=== PATIENT | female | born 1965 | race Caucasian/White ===

== ENCOUNTER → 2020-04-23 15:56 | Outpatient (BNVA) | payer OTHER, SELFPAY | PROVIDERS: PCP Otolaryngology; Referring Provider Otolaryngology; Visit Provider Physician Assistant | DX: K90.49 Malabsorption due to intolerance, not elsewhere classified (principal); Z98.84 Bariatric surgery status | CPT/HCPCS: 99212 ==

== ENCOUNTER → 2020-04-24 12:40 | Outpatient (BNVA) | payer OTHER, SELFPAY | PROVIDERS: Visit Provider Dietitian, Registered | DX: Z90.3 Acquired absence of stomach [part of] (principal) ==

== ENCOUNTER → 2020-04-24 12:40 | Outpatient (BNVA) | payer OTHER, SELFPAY | PROVIDERS: Visit Provider Dietitian, Registered | DX: Z76.89 Persons encountering health services in other specified circumstances (principal) ==

== ENCOUNTER 2020-07-11 14:42 | Outpatient (REF) | payer OTHER, SELFPAY ==
[2020-07-11 16:33] LABS: MANUAL DIFF FLAG NO
[2020-07-11 16:40] LABS: Basophils Percent Auto 0.8 % (0-2); Eosinophils Absolute Auto 0.1 X10*3/uL (0.0-0.4); Eosinophils Percent Auto 2.9 % (0-4); Hematocrit 38.1 % (37-47); Hemoglobin 12.7 g/dl (12.0-16.0); Imm Gran Abs Auto 0.01 X10*3/uL (0.00-0.03); Imm Gran Pct Auto 0.2 % (0.0-0.4); Lymphocytes Absolute Auto 2.2 X10*3/uL (1.2-4.9); Lymphocytes Percent Auto 45.4 % (20-40); Mean Corpuscular HGB Conc 33.3 g/dl (31.0-35.0); Mean Corpuscular Hemoglobin 31.3 pg (27.0-33.0); Mean Corpuscular Volume 93.8 fL (80-98); Mean Platelet Volume 10.6 fL (9.4-12.3); Monocytes Absolute Auto 0.4 X10*3/uL (0.1-1.2); Monocytes Percent Auto 8.2 % (2-11); Neutrophils Percent Auto 42.5 % (45-73); Platelet Count 277 X10*3/uL (160-400); Red Blood Count 4.06 X10*6/uL (4.20-5.50); Red Cell Distribution Width 12.3 % (11.0-16.0); White Blood Count 4.8 X10*3/uL (4.8-10.8)
[2020-07-11 17:04] LABS: Alanine Aminotransferase 15 U/L (0-31); Albumin Level 4.3 g/dL (3.5-5.0); Alkaline Phosphatase 64 U/L (39-117); Anion Gap 11 (12-20); Aspartate Amino Transferase 16 U/L (5-31); Bilirubin Total 0.4 mg/dL (0.0-1.0); Blood Urea Nitrogen 9 mg/dL (9-16); C Reactive Protein < 0.02 mg/dL (< or = 0.50); Calcium 8.7 mg/dL (8.4-10.2); Carbon Dioxide 29 mmol/L (22-29); Chloride 105 mmol/L (96-108); Estimated Glomerular Filt Rate > 60; Glucose Random 65 mg/dL (60-115); Potassium 4.5 mmol/l (3.3-5.1); Sodium 140 mmol/L (135-145); Total Protein 6.7 g/dL (6.5-8.0)
== END 2020-07-11 14:43 | disposition home or self-care (01) ==
LOC: HO.HMGCLDS 14:42
PROVIDERS: PCP Internal Medicine; Visit Provider Internal Medicine
DX: B34.9 Viral infection, unspecified (principal); Z20.822 Contact with and (suspected) exposure to COVID-19
CPT/HCPCS: 36415; 80053; 85025; 86140; U0003

== ENCOUNTER 2020-08-01 12:47 | Outpatient (REF) | payer OTHER, SELFPAY ==
--- NOTE | ~2020-08-01 | XR_ITS ---
EXAMINATION: XR CHEST CLINICAL INFORMATION: Weight loss COMPARISON: Previous chest x-rays most recent September 2018 TECHNIQUE: 2 views of the chest were obtained. FINDINGS: The cardiac and mediastinal contours are stable. The lungs are well-inflated suggestive of COPD. The lungs are clear. There is no pleural effusion or pneumothorax. There are degenerative changes of the spine. XR/XR chest 2V IMPRESSION: Well-inflated lungs suggestive of COPD. No evidence for acute disease in the chest.
[2020-08-01 13:53] LABS: MANUAL DIFF FLAG NO
[2020-08-01 14:06] LABS: Glucose Urine UA NEG (NEG); Leukocyte Esterase Urine NEG (NEG); Nitrite Urine NEG (NEG); PH 5.5 (5.0-8.0); Specific Gravity - Urine 1.015 (1.005-1.025); Urine Blood 1+ (NEG); Urine Ketones NEG (NEG); Urine Protein 1+ MG/DL (NEG-TRACE)
[2020-08-01 14:09] LABS: Appearance Urine HAZY; Color Urine YELLOW
[2020-08-01 14:13] LABS: Basophils Percent Auto 0.2 % (0-2); Eosinophils Percent Auto 0.1 % (0-4); Hematocrit 39.4 % (37-47); Hemoglobin 13.6 g/dl (12.0-16.0); Imm Gran Abs Auto 0.04 X10*3/uL (0.00-0.03); Imm Gran Pct Auto 0.3 % (0.0-0.4); Lymphocytes Absolute Auto 1.3 X10*3/uL (1.2-4.9); Lymphocytes Percent Auto 11.2 % (20-40); Mean Corpuscular HGB Conc 34.5 g/dl (31.0-35.0); Mean Corpuscular Hemoglobin 31.4 pg (27.0-33.0); Mean Platelet Volume 10.6 fL (9.4-12.3); Monocytes Absolute Auto 0.6 X10*3/uL (0.1-1.2); Monocytes Percent Auto 5.4 % (2-11); Neutrophils Absolute Auto 9.7 X10*3/uL (2.0-8.3); Neutrophils Percent Auto 82.8 % (45-73); Platelet Count 346 X10*3/uL (160-400); Red Blood Count 4.33 X10*6/uL (4.20-5.50); Red Cell Distribution Width 12.9 % (11.0-16.0); White Blood Count 11.7 X10*3/uL (4.8-10.8)
[2020-08-01 14:27] LABS: Alanine Aminotransferase 22 U/L (0-31); Albumin Level 4.8 g/dL (3.5-5.0); Alkaline Phosphatase 70 U/L (39-117); Anion Gap 14 (12-20); Aspartate Amino Transferase 18 U/L (5-31); Bilirubin Total 0.5 mg/dL (0.0-1.0); Blood Urea Nitrogen 5 mg/dL (9-16); Calcium 9.9 mg/dL (8.4-10.2); Carbon Dioxide 23 mmol/L (22-29); Chloride 105 mmol/L (96-108); Estimated Glomerular Filt Rate > 60; Glucose Random 114 mg/dL (60-115); Potassium 3.3 mmol/L (3.3-5.1); Sodium 139 mmol/L (135-145); Total Protein 7.6 g/dL (6.5-8.0)
[2020-08-01 14:30] LABS: Bacteria Urine 1+ /LPF; Mucus Urine 2+ /LPF; Squamous Epithelial Cell Urine 2+ /LPF
[2020-08-01 14:58] LABS: Folate > 20.0 ng/mL (> or = 4.0); Vitamin B12 1106 pg/mL (200-900)
[2020-08-01 15:23] LABS: Erythrocyte Sedimentation Rate 11 MM/HR (0-20)
== END 2020-08-01 12:48 | disposition home or self-care (01) ==
LOC: HO.HMGCLDS 12:47
PROVIDERS: PCP Internal Medicine; Visit Provider Internal Medicine
DX: R63.4 Abnormal weight loss (principal)
CPT/HCPCS: 36415; 71046; 80053; 81001; 81003; 82607; 82746; 85025; 85652; 86140

== ENCOUNTER 2020-08-22 14:53 | Outpatient (REF) | payer OTHER, SELFPAY ==
[2020-08-22 17:12] LABS: Vitamin D 25-OH Total 70.3 ng/mL (>30)
[2020-08-24 17:30] LABS: Folate > 20.0 ng/mL (> or = 4.0); Vitamin B12 877 pg/mL (200-900)
[2020-08-27 06:17] LABS: Vitamin B1 35 nmol/L (8-30)
[2020-08-27 13:47] LABS: Vitamin A 73 mcg/dL (38-98)
== END 2020-08-22 14:54 | disposition home or self-care (01) ==
LOC: HO.HMGCLDS 14:53
PROVIDERS: PCP Internal Medicine; Visit Provider Physician Assistant
DX: Z98.84 Bariatric surgery status (principal); Z90.3 Acquired absence of stomach [part of]
CPT/HCPCS: 36415; 82306; 82607; 82746; 84425; 84590

== ENCOUNTER → 2020-09-04 08:12 | Outpatient (BNVA) | payer OTHER, SELFPAY | PROVIDERS: PCP Internal Medicine; Visit Provider Surgery ==

== ENCOUNTER → 2020-09-06 15:56 | Outpatient (BNVA) | payer OTHER, SELFPAY | PROVIDERS: PCP Internal Medicine; Visit Provider Surgery | DX: K90.49 Malabsorption due to intolerance, not elsewhere classified (principal); Z90.3 Acquired absence of stomach [part of] | CPT/HCPCS: 99212 ==

== ENCOUNTER → 2020-11-05 08:21 | Outpatient (BNVA) | payer OTHER, SELFPAY | PROVIDERS: PCP Internal Medicine; Visit Provider Dietitian, Registered | DX: Z68.20 Body mass index [BMI] 20.0-20.9, adult (principal); Z98.84 Bariatric surgery status | CPT/HCPCS: 97803 ==

== ENCOUNTER 2022-04-15 13:12 | Outpatient (REF) | payer OTHER, SELFPAY ==
[2022-04-15 14:15] LABS: MANUAL DIFF FLAG NO
[2022-04-15 14:22] LABS: Basophils Absolute Auto 0.1 X10*3/uL (0.0-0.2); Basophils Percent Auto 1.1 % (0-2); Eosinophils Absolute Auto 0.2 X10*3/uL (0.0-0.4); Eosinophils Percent Auto 3.2 % (0-4); Hematocrit 40.8 % (37.0-47.0); Hemoglobin 13.3 g/dl (12.0-16.0); Imm Gran Abs Auto 0.01 X10*3/uL (0.00-0.03); Imm Gran Pct Auto 0.2 % (0.0-0.4); Lymphocytes Absolute Auto 1.8 X10*3/uL (1.2-4.9); Lymphocytes Percent Auto 33.1 % (20-40); Mean Corpuscular HGB Conc 32.6 g/dl (31.0-35.0); Mean Corpuscular Hemoglobin 29.2 pg (27.0-33.0); Mean Corpuscular Volume 89.7 fL (80.0-98.0); Mean Platelet Volume 10.7 fL (9.4-12.3); Monocytes Absolute Auto 0.5 X10*3/uL (0.1-1.2); Monocytes Percent Auto 8.5 % (2-11); Neutrophils Absolute Auto 2.9 x10*3/uL (2.0-8.3); Neutrophils Percent Auto 53.9 % (45-73); Platelet Count 303 X10*3/uL (160-400); Red Blood Count 4.55 X10*6/uL (4.20-5.50); Red Cell Distribution Width 13.4 % (11.0-16.0); White Blood Count 5.3 X10*3/uL (4.8-10.8)
[2022-04-15 14:31] LABS: Estimated Average Glucose 105 mg/dL; Hemoglobin A1c % 5.3 %
[2022-04-15 15:01] LABS: Alanine Aminotransferase 22 U/L (0-31); Albumin Level 4.5 g/dL (3.5-5.0); Alkaline Phosphatase 73 U/L (39-117); Anion Gap 14 (12-20); Aspartate Amino Transferase 19 U/L (5-31); Bilirubin Total 0.4 mg/dL (0.0-1.0); Blood Urea Nitrogen 10 mg/dL (9-16); Calcium 9.7 mg/dL (8.4-10.2); Carbon Dioxide 26 mmol/L (22-29); Chloride 105 mmol/L (96-108); Cholesterol 178 mg/dL; Estimated Glomerular Filt Rate > 60; Glucose Fasting 87 mg/dL (60-99); HDL Cholesterol 52 mg/dL; LDL Cholesterol Calculated 106 mg/dl; Potassium 4.2 mmol/L (3.3-5.1); Sodium 141 mmol/L (135-145); Total Protein 7.3 g/dL (6.5-8.0); Triglycerides 103 mg/dL
[2022-04-15 15:04] LABS: Thyroid Stimulating Hormone 0.48 uIU/mL (0.32-4.0); Vitamin D 25-OH Total 38.2 ng/mL (>30)
[2022-04-15 16:33] LABS: Appearance Urine Cloudy; Color Urine Yellow; Glucose Urine UA Negative (Negative); Leukocyte Esterase Urine Trace (Negative); Nitrite Urine Negative (Negative); UMIC TRIGGER UA YES; Urine Blood Negative (Negative); Urine Ketones Negative (Negative); Urine Protein Negative (Neg-Trace)
[2022-04-15 16:39] LABS: Bacteria Urine None Seen (None Seen); Hyaline Casts Urine 0-2 /LPF (0-2); RBC Urine 0-2 /HPF (0-2); WBC Urine 0-5 /HPF (0-5)
== END 2022-04-15 13:13 | disposition home or self-care (01) ==
LOC: HO.HMGCLDS 13:12
PROVIDERS: PCP Internal Medicine; Visit Provider Internal Medicine
DX: Z00.00 Encounter for general adult medical examination without abnormal findings (principal); G93.2 Benign intracranial hypertension; E78.00 Pure hypercholesterolemia, unspecified
CPT/HCPCS: 36415; 80053; 80061; 81001; 82306; 83036; 84443; 85025

== ENCOUNTER 2022-05-14 14:44 | Outpatient (REF) | payer OTHER, SELFPAY ==
--- NOTE | ~2022-05-14 | MM_ITS ---
EXAMINATION: MM SCREENING DIGITAL BREAST TOMOSYNTHESIS, BILATERAL CLINICAL INFORMATION: Screening. Asymptomatic. The lifetime risk of breast cancer based on the Tyrer-Cuzick Model is 11%. COMPARISON: Mammography: 04/26/2018, 06/10/2017, 02/21/2016, 07/18/2015; bilateral breast ultrasound 06/10/2017, right breast ultrasound 04/26/2018 TECHNIQUE: Digital breast tomosynthesis is performed in both the craniocaudal and mediolateral oblique views along with computer-aided detection (CAD). Synthesized 2D images are generated from the tomosynthesis. FINDINGS: There are scattered areas of fibroglandular density (ACR BI-RADS breast composition Category b). There are no significant masses, abnormal calcifications, or other abnormalities. No developing density or architectural abnormality. The dominant cyst anterior central right breast has substantially decreased since 2018. Prior measurement approximately 2.4 cm and current measurement approximately 0.6 cm. The smaller cyst anterior upper left breast has resolved since 2018. The axilla and skin contours are unremarkable. No significant changes. MM/MM tomosynthesis screening BI IMPRESSION: -No mammographic evidence of malignancy. -Substantial decrease in bilateral cysts since prior imaging 2018. ASSESSMENT: BI-RADS 2: Benign RECOMMENDATION: Routine annual mammography screening. This patient's information was entered into a reminder system with a target due date for their next mammogram.
== END 2022-05-14 14:45 | disposition home or self-care (01) ==
LOC: HO.MAMMO 14:44
PROVIDERS: PCP Internal Medicine; Visit Provider Internal Medicine
DX: Z12.31 Encounter for screening mammogram for malignant neoplasm of breast (principal)
CPT/HCPCS: 77063; 77067

== ENCOUNTER 2023-05-20 15:02 | Outpatient (REF) | payer OTHER, SELFPAY | END 2023-05-20 15:03 | disposition home or self-care (01) | LOC: HO.MAMMO 15:02 | PROVIDERS: PCP Internal Medicine; Visit Provider Internal Medicine | DX: Z12.31 Encounter for screening mammogram for malignant neoplasm of breast (principal) | CPT/HCPCS: 77063; 77067 ==

== ENCOUNTER → 2023-05-20 15:15 | Outpatient (BNV) | payer OTHER, SELFPAY | PROVIDERS: PCP Internal Medicine; Visit Provider Radiology Diagnostic Radiology | DX: Z12.31 Encounter for screening mammogram for malignant neoplasm of breast (principal) | CPT/HCPCS: 77063; 77067 ==

== ENCOUNTER 2023-09-03 14:05 | Observation (INO) | payer OTHER, SELFPAY ==
[2023-09-03] VITALS (7 sets, daily range): BP systolic 118–159; BP diastolic 58–84; PULSE 62–78; RESP 16–18; TEMP 36.5–36.6; O2SAT 97–100; BMI 34.9
--- NOTE | ~2023-09-03 | CT_ITS ---
EXAMINATION: CT HEAD WITHOUT CONTRAST CLINICAL INFORMATION: Syncope COMPARISON: None available. TECHNIQUE: Contiguous axial imaging was performed from the skull base to vertex without intravenous administration of contrast. This CT examination was performed using dose optimization techniques as appropriate, variously including the following: *Automated exposure control *Adjustment of mA and/or kV according to patient size (this includes techniques or standardized protocols for targeted exams where dose is matched to indication/reason for exam; i.e. extremities or head) *Use of iterative reconstruction technique DLP: 574 mGy-cm FINDINGS: There is no acute intra-axial, extra-axial bleed, masses or midline shift. There is a no acute infarction in evolution. There is no edema. The collier to white matter differentiation is maintained normal. Bone windows reveal no calvarial abnormality. There is no scalp soft tissue abnormality. CT/CT head/brain wo IV con IMPRESSION: No acute intracranial process seen.
--- NOTE | ~2023-09-03 | XR_ITS ---
EXAMINATION: XR CHEST CLINICAL INFORMATION: Syncope COMPARISON: None available. TECHNIQUE: Frontal view of the chest was obtained. FINDINGS: No significant abnormality is noted involving the heart, lungs, mediastinum, bony thorax or soft tissues. XR/XR chest 1V IMPRESSION: Unremarkable chest examination.
--- NOTE | 2023-09-03 14:13 | ECG_ITS ---
Test Reason : SYNCOPE Blood Pressure : / mmHG Vent. Rate : 063 BPM Atrial Rate : 063 BPM P-R Int : 202 ms QRS Dur : 084 ms QT Int : 408 ms P-R-T Axes : 057 019 023 degrees QTc Int : 417 ms Normal sinus rhythm Normal ECG When compared with ECG of 21-DEC-2018 15:21, No significant change was found Referred By: Marcus Salvador Electronically Signed By:SHORTY CEE
--- NOTE | 2023-09-03 14:23 | ED.SYNCOPE ---
HPI - Syncope General Chief Complaint: Syncope Stated Complaint: SYNCOPAL EPISODE NUMBESS IN EXTREMITIES Time Seen by Provider: 09/03/23 14:13 Source: patient, EMS and old records reviewed Mode of arrival: EMS Limitations: no limitations History of Present Illness HPI narrative: A 58-year-old female brought in by ambulance for evaluation of syncopal episode witnessed by . Patient been having generalized body numbness constantly for the past few months that has been evaluated by neurologist Dr. Root no underlying cause of patient's generalized numbness was found. Since yesterday patient feels generalized body numbness and shooting pain to both legs with bilateral like weakness only if she stands for long time, patient last remember that she was walking in the house then the 2nd thing she remembered when her was trying to wake up by rubbing her chest. Patient declined CP, SOB, focal weakness. Related Data Home Medications Medication Instructions Recorded Confirmed Celebrate Bariatric Multivitamin PO 04/23/20 09/06/20 pravastatin 40 mg tablet 40 mg PO DAILY 04/24/20 09/06/20 trazodone 100 mg tablet 100 mg PO BEDTIME PRN 04/24/20 09/06/20 bimuuztogu-aulpoajrmjzov-mdoptqpp tab PO 09/06/20 09/06/20 50 mg-325 mg-40 mg tablet cyclobenzaprine 10 mg tablet 10 mg PO TID PRN 09/06/20 09/06/20 linaclotide 290 mcg capsule 290 mcg PO DAILY 09/06/20 09/06/20 (Linzess) tlirnick-gmsl-wfdh 8 mg-folic 400 1 tab PO DAILY 09/06/20 09/06/20 mcg-K 50 mcg-lutein 300 mcg tablet (Multivitamin Women 50 Plus) omeprazole 40 mg capsule,delayed 40 mg PO DAILY 09/06/20 09/06/20 release potassium gluconate 595 mg (99 mg) 595 mg PO DAILY 09/06/20 09/06/20 tablet spironolactone 50 mg tablet 50 mg PO DAILY 09/06/20 09/06/20 topiramate 100 mg tablet (Topamax) 50 mg PO BID 09/06/20 09/06/20 topiramate 50 mg tablet 50 mg PO BID 09/06/20 09/06/20 calcium citrate 500 mg PO BID 03/03/22 Previous Rx's Medication Instructions Recorded docusate sodium 100 mg capsule 100 mg PO BID #60 caps 10/17/20 calcium citrate 500 mg (2 x 250 mg calcium) PO BID 08/16/21 #30 tabs Allergies Allergy/AdvReac Type Severity Reaction Status Date / Time varenicline [From CHANTIX] Allergy Severe NIGHTMARES Verified 09/06/20 16:41 acetaminophen Allergy Unknown emesis Verified 09/06/20 16:41 [Tylenol-Codeine] barium sulfate Allergy Unknown nightmares Verified 09/06/20 16:41 codeine [Tylenol-Codeine] Allergy Unknown emesis Verified 09/06/20 16:41 pt states no food allergies Allergy Unknown nka Uncoded 09/06/20 16:41 From Tylenol-Codeine #2 AdvReac Intermediate NAUSEA Uncoded 09/06/20 16:41 Review of Systems Review of Systems: All other systems are reviewed and are negative Constitutional: Reports as per HPI and Reports no additional constitutional complaints Eyes: Reports as per HPI and Reports no additional eye complaints Reports system reviewed and no additional complaints, except as documented Cardiovascular: Reports as per HPI and Reports no additional cardiovascular complaints Respiratory: Reports as per HPI and Reports no additional respiratory complaints Gastrointestinal: Reports as per HPI and Reports no additional gastrointestinal complaints Genitourinary: Reports no additional female genitourinary complaints Musculoskeletal: Reports no additional musculoskeletal complaints Skin/Breast: Reports system reviewed and no additional complaints, except as docu Psychiatric: Reports no additional psychiatric complaints Endocrine: Reports no additional endocrine complaints Hematologic/Lymphatic: Reports no additional hematologic/lymphatic complaints Allergic/Immunologic: Reports no additional allergic/immunologic complaints Reports system reviewed and no additional complaints, except as documented and Reports Abnormal speech present [facility] Past Medical History Medical History Obesity (BMI 30-39.9) Hypercholesteremia GERD (gastroesophageal reflux disease) Hiatal hernia Pseudotumor cerebri Malabsorption due to intolerance, not elsewhere classified Hx of ectopic Surgical History History of repair of hiatal hernia Hx of section History of dilatation and curettage History of partial hysterectomy History of sleeve gastrectomy Hx of cholecystectomy Family History Family History Father Bone cancer History of hypothyroidism Diabetes mellitus Mother Diabetes mellitus Hyperuricemia, pulmonary hypertension, renal failure, and alkalosis syndrome Brother No problems noted. Daughter No problems noted. Daughter No problems noted. Son No problems noted. Son No problems noted. Social History Social History Alcohol intake: never Advance Directives: No Physical Exam Vital Signs: Vital Signs: Last Vital Signs Pulse 71 09/03/23 14:21 Resp 16 09/03/23 14:21 BP 142/65 H 09/03/23 14:21 Pulse Ox 99 09/03/23 14:21 O2 Del Method Room Air 09/03/23 14:21 BMI result Body Mass Index 34.9 Vital signs have been reviewed and appear to be correct. Blood pressure elevated. Heart rate normal. Respiratory rate normal. Temperature normal. Oxygen saturation normal. Appearance: Alert. Oriented X3. No acute distress. Head: Normal external exam. Normocephalic. Atraumatic. No Pepe signs noted. No raccoon eyes noted Eyes: PERRLA. EOMI. Conjunctiva and sclera normal. Eyelids normal. ENT: TM's Normal. Pharynx normal. Uvula midline. Moist mucous membranes. No trismus noted. No drooling noted. No muffled voice noted. Neck: Normal inspection. Neck supple. FROM. No adenopathy. Thyroid Normal. No meningeal signs. No neck mass noted. CVS: Normal heart rate and rhythm. Heart sound normal. No murmurs noted. Pulses normal throughout. Respiratory: No respiratory distress. Painless inspiration. Breath sounds normal. No wheezes/rales/rhonchi noted. Chest nontender. No accessory muscle usage noted or decreased air movement noted. Abdomen: Soft and nontender. Bowel sounds normal in all 4 quadrants. No distention noted. No organomegaly noted. No visible injury noted. Back: No CVA tenderness. Full range of motion noted. Skin: Skin warm and dry. Normal skin color. Normal skin turgor. No rashes/lesions/lacerations noted. Extremities: No lower extremity edema. Extremities exhibit normal range of motion. Extremities nontender. Neuro: Oriented X 3. Cranial nerve exam: II-XII are grossly intact No motor deficit. No sensory deficit. Reflexes normal. NIH Stroke Scale Time: 14:29 Level of Consciousness: Alert Level of Consciousness Questions: Answers both questions correctly Level of Consciousness Commands: Performs both tasks correctly Best Gaze: Normal Visual: No visual loss Facial Palsy: Normal Motor Arm (Right): No drift Motor Arm (Left): No drift Motor Leg (Right): No drift Motor Leg (Left): No drift Limb Ataxia: Absent Sensory: Normal Best Language: No aphasia Dysarthia: Normal Extinction and Inattention: No abnormality Score: 0 Course Reevaluation(s) Reevaluation #1: Syncopal episode, with generalized body paresthesia that has been evaluated by neurologist in the past, will admit the patient for further cardiac monitoring. Time: 17:00 Medications Administered Discontinued Medications Generic Name Dose Route Start Last Admin Trade Name Freq PRN Reason Stop Dose Admin Sodium Chloride 1,000 mls @ 999 mls/hr 09/03/23 14:13 09/03/23 16:46 Ns IV 09/03/23 15:13 Infused .Q1H1M ONE Infusion Medical Decision Making Differential Diagnosis Differential Diagnoses: The differential diagnosis associated with the presentation includes (ACS, CHF, electrolyte abnormality, severe anemia, pneumonia, pneumothorax, intracranial pathology.) Admission/Observation Consideration of admission/observation: Escalation of care including admission/observation considered Consult Healthcare Provider Management of the patient was discussed with: Hospitalist (Dr. Reddy) Lab Data MDM Lab Attestation statement: I reviewed the patient's lab results. 09/03/23 14:55 09/03/23 14:55 Labs: Lab Results 09/03/23 Range/Units 14:55 WBC 6.4 (4.8-10.8) X10*3/uL RBC 4.41 (4.20-5.50) X10*6/uL Hgb 13.3 (12.0-16.0) g/dl Hct 39.7 (37.0-47.0) % MCV 90.0 (80.0-98.0) fL MCH 30.2 (27.0-33.0) pg MCHC 33.5 (31.0-35.0) g/dl RDW 13.2 (11.0-16.0) % Plt Count 311 (160-400) X10*3/uL MPV 10.0 (9.4-12.3) fL Immature Gran % (Auto) 0.2 (0.0-0.4) % Neut % (Auto) 59.0 (45-73) % Lymph % (Auto) 30.3 (20-40) % [place] % (Auto) 6.9 (2-11) % Eos % (Auto) 2.8 (0-4) % Baso % (Auto) 0.8 (0-2) % Lymph # (Auto) 1.9 (1.2-4.9) X10*3/uL [place] # (Auto) 0.4 (0.1-1.2) X10*3/uL Eos # (Auto) 0.2 (0.0-0.4) X10*3/uL Baso # (Auto) 0.1 (0.0-0.2) X10*3/uL Abs Immat Gran (auto) 0.01 (0.00-0.03) X10*3/uL Absolute Neuts (auto) 3.8 (2.0-8.3) x10*3/uL Absolute Nucleated RBC 0.000 (0.0-0.012) X10*3/uL Nucleated RBC % (auto) 0.0 (0.0-0.2) /100WBC Sodium 143 (135-145) mmol/L Potassium 3.6 (3.3-5.1) mmol/L Chloride 110 H (96-108) mmol/L Carbon Dioxide 26 (22-29) mmol/L Anion Gap 11 L (12-20) BUN 8 L (9-16) mg/dL Creatinine 0.63 (0.5-1.4) mg/dL Estim Creat Clear Calc 109.7 Estimated GFR > 60 Random Glucose 96 (60-115) mg/dL Calcium 8.9 D (8.4-10.2) mg/dL Total Bilirubin 0.2 (0.0-1.0) mg/dL Direct Bilirubin < 0.2 (0.0-0.5) mg/dL AST 14 (5-31) U/L ALT 15 (0-31) U/L Alkaline Phosphatase 77 (39-117) U/L Troponin I High Sens < 2.7 (<3.5-17.0) ng/L B-Natriuretic Peptide 24 (<100) pg/mL Total Protein 6.9 (6.5-8.0) g/dL Albumin 4.0 (3.5-5.0) g/dL Lipase 18 (8-78) U/L Influenza Type A (PCR) NEGATIVE (Negative) Influenza Type B (PCR) NEGATIVE (Negative) RSV RNA Qual (PCR) NEGATIVE (Negative) SARS-CoV-2 RNA (RT-PCR) NEGATIVE (Negative) Independent Interpretation I performed an independent interpretation of an: EKG (Normal sinus rhythm at 63 beats per minute, normal axis deviation, normal intervals, no ST-T changes, no significant change from previous EKG.), Plain X-Ray (Chest: No acute intrathoracic pathology.) and CT Scan (Head: No acute intracranial pathology.) Radiology Impression Discussion of test interpretation with radiology: I have reviewed the radiologist's reading. Discharge Plan Discharge Clinical Impression: Syncope and collapse Patient Disposition: Admitted As Inpatient Prescriptions: No Action docusate sodium 100 mg capsule 100 mg PO BID Qty: 60 2RF calcium citrate 250 mg calcium tablet 500 mg PO BID calcium citrate 250 mg calcium tablet 500 mg PO BID Qty: 30 3RF topiramate 50 mg tablet 50 mg PO BID omeprazole 40 mg capsule,delayed release(DR/EC) 40 mg PO DAILY spironolactone 50 mg tablet 50 mg PO DAILY Linzess 290 mcg capsule 290 mcg PO DAILY Multivitamin Women 50 Plus 8 mg iron-400 mcg-300 mcg tablet 1 tab PO DAILY cyclobenzaprine 10 mg tablet 10 mg PO TID PRN wwzrcvzyhy-asbwhnkvyzenl-ozqp 50-325-40 mg tablet PO potassium gluconate 595 mg (99 mg) tablet 595 mg PO DAILY Celebrate Bariatric Multivitamin PO pravastatin 40 mg tablet 40 mg PO DAILY trazodone 100 mg tablet 100 mg PO BEDTIME PRN topiramate [Topamax] 100 mg tablet 50 mg PO BID
[2023-09-03] MEDS: 0.9 % Sodium Chloride 1,000 ML 999 ML IV (14:27)
[2023-09-03 15:00] LABS: MANUAL DIFF FLAG NO
[2023-09-03 15:12] LABS: Basophils Absolute Auto 0.1 X10*3/uL (0.0-0.2); Basophils Percent Auto 0.8 % (0-2); Eosinophils Absolute Auto 0.2 X10*3/uL (0.0-0.4); Eosinophils Percent Auto 2.8 % (0-4); Hematocrit 39.7 % (37.0-47.0); Hemoglobin 13.3 g/dl (12.0-16.0); Imm Gran Abs Auto 0.01 X10*3/uL (0.00-0.03); Imm Gran Pct Auto 0.2 % (0.0-0.4); Lymphocytes Absolute Auto 1.9 X10*3/uL (1.2-4.9); Lymphocytes Percent Auto 30.3 % (20-40); Mean Corpuscular HGB Conc 33.5 g/dl (31.0-35.0); Mean Corpuscular Hemoglobin 30.2 pg (27.0-33.0); Monocytes Absolute Auto 0.4 X10*3/uL (0.1-1.2); Monocytes Percent Auto 6.9 % (2-11); Neutrophils Absolute Auto 3.8 x10*3/uL (2.0-8.3); Platelet Count 311 X10*3/uL (160-400); Red Blood Count 4.41 X10*6/uL (4.20-5.50); Red Cell Distribution Width 13.2 % (11.0-16.0); White Blood Count 6.4 X10*3/uL (4.8-10.8)
[2023-09-03 15:22] LABS: Alanine Aminotransferase 15 U/L (0-31); Alkaline Phosphatase 77 U/L (39-117); Anion Gap 11 (12-20); Aspartate Amino Transferase 14 U/L (5-31); Bilirubin Direct < 0.2 mg/dL (0.0-0.5); Bilirubin Total 0.2 mg/dL (0.0-1.0); Blood Urea Nitrogen 8 mg/dL (9-16); Calcium 8.9 mg/dL (8.4-10.2); Carbon Dioxide 26 mmol/L (22-29); Chloride 110 mmol/L (96-108); Creatinine Clr Calc Pharmacy 109.7; Estimated Glomerular Filt Rate > 60; Glucose Random 96 mg/dL (60-115); Lipase 18 U/L (8-78); Potassium 3.6 mmol/L (3.3-5.1); Sodium 143 mmol/L (135-145); Total Protein 6.9 g/dL (6.5-8.0)
[2023-09-03 15:27] LABS: B Type Natriuretic Peptide 24 pg/mL (<100)
[2023-09-03 15:29] LABS: Troponin-I High Sensitivity < 2.7 ng/L (<3.5-17.0)
[2023-09-03 15:39] LABS: Influenza A PCR NEGATIVE (Negative); Influenza B PCR NEGATIVE (Negative); Resp Syncy Virus RNA Qual PCR NEGATIVE (Negative); SARS COV2 PCR INHOUSE NEGATIVE (Negative)
--- NOTE | 2023-09-03 17:33 | PHA.MEDREC ---
Pharmacy Consult ? Medication Reconciliation Pharmacy has completed the medication reconciliation. Patient reported medicaitons. Report linzess, flexril and spironolactone are prn medications. Doreen Welch, AvisD
[2023-09-03 18:39] LABS: Appearance Urine Clear; Color Urine Yellow; Glucose Urine UA Negative (Negative); Leukocyte Esterase Urine Negative (Negative); Nitrite Urine Negative (Negative); Specific Gravity - Urine <= 1.005 (1.005-1.025); Urine Blood Negative (Negative); Urine Ketones Negative (Negative); Urine Protein Negative (Neg-Trace)
--- NOTE | 2023-09-03 18:43 | P.HPHOSP_ITS ---
History of Present Illness Date of Service: 09/03/23 Attending physician on admission: Garfield Srinivasan Chief Complaint: Syncopal episode Pt is a 58-year-old female with a PMH significant for?HLD, migraines, and GERD who presents to the ED for evaluation of syncopal episode at home. Patient states she was walking in her home earlier today when she suddenly felt her legs give out and she collapsed to the floor. Episode was witnessed by her who states she was ?out flat for 3-4 minutes. Denies seizure-like activity during event and no postictal state. Reports she has been eating and drinking normally. No sick contacts. Denies any recent illnesses. Denies significant cardiac history. Patient notes that she has been experiencing whole-body numbness and tingling from neck down for the past year. Has been seen by Dr. Root in Neurology for nerve conduction study which has apparently been negative. Reports is not undergone any MRI imaging. States condition changed last night when she began experiencing sharp shooting pains in lower extremities bilaterally. Reports she felt like she was getting a ?Charley horse? and like the skin on her legs wanted to ?rip apart?. Leg pain continued this morning when patient woke up. After syncopal episode patient also complains of new onset lower extremity weakness, and vision changes where she feels like there is a ?film? over her eyes. Denies headache. No facial droop, difficulty word finding, dysarthria. Denies fever, chills, nausea, vomiting, abdominal pain. No chest pain/pressure, palpitations. Denies shortness of breath. In the ED pt was Labs were grossly unremarkable. No leukocytosis. Stable H&H. No significant electrolyte abnormalities. Renal and hepatic function WNL. Random glucose 96. Troponin negative. Orthostatics negative. UA negative for UTI. Tested negative for influenza, RSV, COVID. CXR was unremarkable. CT?of head showed no acute intracranial process. EKG demonstrated normal sinus rhythm without evidence of ST elevations or depressions. Pt was treated with IVF. Pt will be admitted to the hospital under observation for treatment and further evaluation of syncopal episode. Review of Systems 2 Review of Systems: Syncopal episode with LOC 3-4 minutes Sharp shooting pain in lower extremities bilaterally since last night Lower leg weakness post syncopal episode Visual changes Chronic numbness and tingling from neck down Denies chest pain/pressure, palpitations No shortness a breath Denies fever, chills, nausea, vomiting, abdominal pain PMFSH Medical History Obesity (BMI 30-39.9) Hypercholesteremia GERD (gastroesophageal reflux disease) Hiatal hernia Pseudotumor cerebri Malabsorption due to intolerance, not elsewhere classified Hx of ectopic Family History Father Bone cancer History of hypothyroidism Diabetes mellitus Mother Diabetes mellitus Hyperuricemia, pulmonary hypertension, renal failure, and alkalosis syndrome Brother No problems noted. Daughter No problems noted. Daughter No problems noted. Son No problems noted. Son No problems noted. Surgical History History of repair of hiatal hernia Hx of section History of dilatation and curettage History of partial hysterectomy History of sleeve gastrectomy Hx of cholecystectomy Social History Alcohol intake: never Smoked in Last 30 Days: No Use of substances other than those prescribed or required for medical reasons: No Advance Directives: No Patient : No Meds Allergies Allergy/AdvReac Type Severity Reaction Status Date / Time varenicline [From CHANTIX] Allergy Severe NIGHTMARES Verified 09/06/20 16:41 acetaminophen Allergy Unknown emesis Verified 09/06/20 16:41 [Tylenol-Codeine] barium sulfate Allergy Unknown nightmares Verified 09/06/20 16:41 codeine [Tylenol-Codeine] Allergy Unknown emesis Verified 09/06/20 16:41 pt states no food allergies Allergy Unknown nka Uncoded 09/06/20 16:41 From Tylenol-Codeine #2 AdvReac Intermediate NAUSEA Uncoded 09/06/20 16:41 Home Medications Medication Instructions Recorded Confirmed Last Taken Type pravastatin 40 mg tablet 40 mg PO BEDTIME 04/24/20 09/03/23 09/02/23 History trazodone 100 mg tablet 100 mg PO BEDTIME Insomnia 04/24/20 09/03/23 09/02/23 History cyclobenzaprine 10 mg tablet 10 mg PO TID PRN Muscle Spasm 09/06/20 09/03/23 Unknown History linaclotide 290 mcg capsule 290 mcg PO DAILY PRN Constipation 09/06/20 09/03/23 Unknown History (Linzess) pkpvxrmm-kmus-ieys 8 mg-folic 400 1 tab PO DAILY 09/06/20 09/03/23 09/03/23 History mcg-K 50 mcg-lutein 300 mcg tablet (Multivitamin Women 50 Plus) omeprazole 40 mg capsule,delayed 40 mg PO DAILY 09/06/20 09/03/23 09/03/23 History release spironolactone 50 mg tablet 50 mg PO DAILY PRN Edema 09/06/20 09/03/23 Unknown History topiramate 50 mg tablet 50 mg PO BEDTIME 09/06/20 09/03/23 09/02/23 History Physical Exam 2 Vital Signs and Narrative: Vital Signs: Last Vital Signs Temp 97.7 F 09/03/23 17:46 Pulse 78 09/03/23 18:21 Resp 18 09/03/23 17:46 BP 145/84 H 09/03/23 18:21 Pulse Ox 99 09/03/23 17:46 O2 Del Method Room Air 09/03/23 17:46 BMI result Body Mass Index 34.9 Constitutional: Alert, in no acute distress. Mental Status: Oriented to person, place and time. Eyes: Pupils are equal, round, and reactive to light. Ear, Nose, and Throat: Oropharynx clear, mucous membranes moist. Ears and nose without deformities. Trachea midline. Respiratory: Clear to auscultation bilaterally. No wheezing, rales, or rhonchi. Cardiovascular: S1, S2 regular. No murmurs, rubs, or gallops. Gastrointestinal: Abdomen soft, non-tender, non-distended. Normal bowel sounds. Neurologic: Question of right-sided nystagmus. Reduced strength of lower extremities bilaterally. Preserved offer extremity strength. Sensation to light touch intact of both upper and lower extremities. Skin: Warm, dry. Musculoskeletal: No cyanosis or clubbing. Extremities: No edema. Psychiatric: Normal mood and affect. Results Labs 09/03/23 14:55 09/03/23 14:55 Labs: Laboratory Results - last 24 hr 09/03/23 09/03/23 14:55 18:16 MCV 90.0 MCH 30.2 MCHC 33.5 RDW 13.2 Plt Count 311 MPV 10.0 Immature Gran % (Auto) 0.2 Neut % (Auto) 59.0 Lymph % (Auto) 30.3 [place] % (Auto) 6.9 Eos % (Auto) 2.8 Baso % (Auto) 0.8 Lymph # (Auto) 1.9 [place] # (Auto) 0.4 Eos # (Auto) 0.2 Baso # (Auto) 0.1 Abs Immat Gran (auto) 0.01 Absolute Neuts (auto) 3.8 Absolute Nucleated RBC 0.000 Nucleated RBC % (auto) 0.0 Anion Gap 11 L Estim Creat Clear Calc 109.7 Estimated GFR > 60 Random Glucose 96 Calcium 8.9 D Total Bilirubin 0.2 Direct Bilirubin < 0.2 AST 14 ALT 15 Alkaline Phosphatase 77 Troponin I High Sens < 2.7 B-Natriuretic Peptide 24 Total Protein 6.9 Albumin 4.0 Lipase 18 Urine Color Yellow Urine Appearance Clear Urine pH 7.0 Ur Specific [place] <= 1.005 Urine Protein Negative Urine Glucose (UA) Negative Urine Ketones Negative Urine Blood Negative Urine Nitrite Negative Ur Leukocyte Esterase Negative Influenza Type A (PCR) NEGATIVE Influenza Type B (PCR) NEGATIVE RSV RNA Qual (PCR) NEGATIVE SARS-CoV-2 RNA (RT-PCR) NEGATIVE Imaging Radiologist's Impressions: Impressions Chest X-Ray 09/03/23 14:41 IMPRESSION: Unremarkable chest examination. Assessment and Plan (1) Syncope and collapse: Status: Acute Plan Pt is a 58-year-old female with a PMH significant for?HLD, migraines, and GERD who presents to the ED for evaluation of syncopal episode at home. Patient states she was walking in her home earlier today when she suddenly felt her legs give out and she collapsed to the floor. Episode was witnessed by her who states she was ?out flat for 3-4 minutes. Pt will be admitted to the hospital under observation for treatment and further evaluation of syncopal episode. Syncopal episode Patient with episode of LOC 3-4 minutes long while walking in house Etiology unclear: Differential includes vasovagal, cardiac, neurologic Orthostatics negative, POC 96, RSV/COVID/flu negative CBC, CMP unremarkable EKG normal sinus rhythm without ischemic changes Patient received IVF in ED Echocardiogram Cardiology consult Monitor on telemetry Lower extremity weakness Pt with numbness/tingling from neck down x [address] Root, nerve conduction testing apparently negative Has had sharp shooting pains in lower legs since last night Bilateral lower leg weakness since syncopal episode today Question of nystagmus on physical exam; also complains of a film over her eyes Pt currently not back to baseline CT of head negative for acute intracranial pathology Will treate with gabapentin prn Neurology consult Will defer any MRI imaging pending neurology consult HLD Continue statin GERD PPI Migraines Continue topiramate Hx of lower leg edema Continue spironolactone p.r.n. Full Code Attending:?Dr. Mcbride DVT Prophylaxis: Lovenox Patient will be admitted to the hospital under observation on telemetry for treatment and further evaluation of syncopal episode. Patient will require overnight hospitalization for close monitoring cardiac function, additional imaging, and specialist consultation with both Cardiology and Neurology. Quality Stroke Does the patient have a stroke diagnosis?: No VTE Prior VTE?: No VTE Risk Level:: Medical - moderate - high VTE Device Contraindication: Treatment Not Indicated VTE Drug Contraindication: N/A - Med Ordered
--- NOTE | 2023-09-03 19:45 | PC.NURSE ---
Assumed care of this Pt at 1900. Pt A&Ox3, reports 6/10 constant numbness pain to bilateral legs. Pt reports pain radiates down legs. Pt ambulates to BR independently with steady gait.
[2023-09-03] MEDS: traZODone HCL 100 MG TABLET PO (22:13)
[2023-09-03] MEDS: Pravastatin Sodium 40 MG TABLET PO (22:13)
[2023-09-03] MEDS: Enoxaparin Sodium 40 MG/0.4 ML SYRINGE SUBCUT (22:13)
[2023-09-03] MEDS: Topiramate 25 MG TABLET 50 MG PO (22:13)
[2023-09-04] VITALS (7 sets, daily range): BP systolic 111–129; BP diastolic 48–74; PULSE 69–83; RESP 17–20; TEMP 36.3–37.4; O2SAT 95–100; BMI 35.0
[2023-09-04] MEDS: 0.9 % Sodium Chloride Flush 3 ML SYRINGE IVFLUSH ×4 (00:50→20:11)
[2023-09-04] MEDS: Omeprazole 40 MG CAPSULE.DR PO (06:23)
--- NOTE | 2023-09-04 07:00 | CA_ITS ---
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 The calculated ejection fraction is 66% by biplane method. - No obvious valvular pathology seen on this study. Findings Left Ventricle Normal left ventricular cavity size. There is mildly increased left ventricular wall thickness. The left ventricular systolic function is normal. The calculated ejection fraction is 66% by biplane method. There is no evidence of regional wall motion abnormalities. Diastolic function is normal for age. Right Ventricle Normal right ventricular cavity size and systolic function. Atria Both atria are normal in size. Aortic Valve There is a normal trileaflet aortic valve. There is no aortic valve stenosis. There is no aortic valve regurgitation. Mitral Valve The mitral valve appears normal. There is no mitral valve regurgitation. There is no mitral valve stenosis. Pulmonic Valve The pulmonic valve is likely normal. Tricuspid Valve There is trace tricuspid valve regurgitation. There is no evidence of pulmonary hypertension. Great Vessels The asc aorta is normal in size. Venous The inferior vena cava is normal in size and collapses greater than 50% with inspiration. Pericardium/Pleural There is no evidence of pericardial effusion. Prior Study Comparison No prior study available for comparison. Recommendations, Care & Conclusions No obvious valvular pathology seen on this study. Measurements 2D Linear Measurements IVSd: 1.28 0.6-0.9/0.6-1.0 cm LVIDd: 4.32 3.9-5.3/4.2-5.9 cm LVIDd Index: 2.14 2.4-3.2/2.2-3.1 cm/m2 LVIDs: 2.82 2.0-3.6 cm LVPWd: 1.20 0.7-1.1 cm Ao Root: 2.90 2.1-3.5 cm LA Diam: 3.90 2.7-3.8/3.0-4.0 cm LAIDs Index: 1.93 1.5-2.3 cm/m2 LV Mass: 243.16 67-162/88-224 g LV Mass Index: 120.38 43-95/49-115 g/m2 LVOT Diam: 2.10 3.0+(-)1.3 cm 2D Systolic Function EF 4C: 65.40 >55% EF 2C: 68.00 >55% EF BiP: 66.40 >55% Mitral Valve MV Pk E: 0.67 MV PK A: 0.91 MV Decel Time: 171.00 E/A: 0.70 E'Lateral: 11.40 E'Medial: 9.68 E/E' Med: 7.00 E/E' Lat: 5.90 PHT: 50.00 MVA PHT: 4.40 Decel [place]: 3.93 Aortic Valve AoV Pk Armani: 1.88 AoV Mn Armani: 1.17 AoV VTI: 0.37 AoV Pk Grad: 14.00 Aov Mn Grad: 7.00 DWAYNE Cont.VTI: 1.75 LVOT LVOT Pk Armani: 1.03 LVOT Mn Armani: 0.69 LVOT VTI: 0.19 LVOT Pk Grad: 4.00 LVOT Mn Grad: 2.00 LVOT Diam: 2.10 LVOT Area: 3.46 Diastolic Function MV Pk E: 0.67 MV Pk A: 0.91 E/A: 0.70 E'Medial: 9.68 E/E' Med: 7.00 E' Laterial: 11.40 E/E' Lat: 5.90 Right Ventricle TAPSE (mm): 28.10 TVS' Armani: 12.70 Tricuspid Valve TR Pk Armani: 1.95 TR Pk Grad: 15.00 Great Vessels Aorta Ao Root-2D: 2.90 2.0-3.7 cm Ao Asc: 2.70 2.1-3.4 cm Pulmonary Valve PV Pk Armani: 1.41 Peak PV Grad: 8.00 Updated in Other Vendor System with Status of Final Pavan High MD electronically signed on 09/04/2023 3:15:47 PM with status of Final
[2023-09-04] MEDS: Cyclobenzaprine HCl 10 MG TABLET PO ×2 (08:44→20:13)
[2023-09-04] MEDS: Gabapentin 300 MG CAPSULE PO (08:44)
[2023-09-04] MEDS: Multivitamin TABLET 1 TAB PO (08:44)
--- NOTE | 2023-09-04 08:47 | PC.NURSE ---
Pt ate breakfast, continues to endorse leg pain. Pt medicated per MAR. Awaiting inpatient bed assignment.
--- NOTE | 2023-09-04 09:56 | PM.CNCAR ---
History of Present Illness History of Present Illness Date of Service: 09/04/23 Chief complaint: syncopal episode Narrative: This is a cardiology consultation regarding syncopal episode. Patient does not have any history of coronary disease or myocardial infarction or cardiomyopathy or in fact any cardiac issues whatsoever. No previous syncopal episodes. She states that she was walking in her home and all of a sudden her legs gave out and she was on the floor. According to patient, she believes she was out for about 3-4 minutes. Currently, she is back to normal self. No other symptoms like chest pain or shortness of breath. Prior to this, she states she was doing fine and did not have any concerning symptoms from cardiac standpoint. She does have some other neurological symptoms like whole-body numbness, tingling extra and has seen Neurology. Review of Systems Review of Systems: Yes all other systems are reviewed and are negative Constitutional: Constitutional: Reports as per HPI and Reports no additional constitutional complaints Eyes: Eyes: Reports as per HPI and Denies no additional eye complaints ENT: Denies system reviewed and no additional complaints, except as documented and Reports as per HPI Cardiovascular: Cardiovascular: Reports as per HPI, Reports no additional cardiovascular complaints, Denies acrocyanosis, Denies cool extremities, Denies chest pain, Denies leg edema, Denies lightheadedness, Denies palpitations and Denies dyspnea Respiratory: Respiratory: Reports as per HPI, Denies no additional respiratory complaints and Denies dyspnea Gastrointestinal: Gastrointestinal: Reports as per HPI and Denies no additional gastrointestinal complaints Genitourinary: Genitourinary: Reports as per HPI Musculoskeletal: Musculoskeletal: Reports no additional musculoskeletal complaints and Reports as per HPI Integumentary/Breasts: Skin/Breast: Reports system reviewed and no additional complaints, except as docu Neurologic: Reports system reviewed and no additional complaints, except as documented and Reports as per HPI Psychiatric: Psychiatric: Reports no additional psychiatric complaints and Reports as per HPI Endocrine: Endocrine: Reports no additional endocrine complaints, Reports as per HPI and Denies palpitations Hematologic/Lymphatic: Hematologic/Lymphatic: Reports no additional hematologic/lymphatic complaints and Reports as per HPI Allergic/Immunologic: Allergic/Immunologic: Reports no additional allergic/immunologic complaints and Reports as per HPI [facility] Past Medical History Medical History Obesity (BMI 30-39.9) Hypercholesteremia GERD (gastroesophageal reflux disease) Hiatal hernia Pseudotumor cerebri Malabsorption due to intolerance, not elsewhere classified Hx of ectopic Family History Family History Father Bone cancer History of hypothyroidism Diabetes mellitus Mother Diabetes mellitus Hyperuricemia, pulmonary hypertension, renal failure, and alkalosis syndrome Brother No problems noted. Daughter No problems noted. Daughter No problems noted. Son No problems noted. Son No problems noted. Surgical History Surgical History History of repair of hiatal hernia Hx of section History of dilatation and curettage History of partial hysterectomy History of sleeve gastrectomy Hx of cholecystectomy Social History Social History Alcohol intake: never Patient Tobacco Use Status: Never used Tobacco Smoked in Last 30 Days: No Use of substances other than those prescribed or required for medical reasons: No Advance Directives: No Nutrition Risks: No Nutritional Risk Patient : No Meds Allergies Allergy/AdvReac Type Severity Reaction Status Date / Time varenicline [From CHANTIX] Allergy Severe NIGHTMARES Verified 09/06/20 16:41 acetaminophen Allergy Unknown emesis Verified 09/06/20 16:41 [Tylenol-Codeine] barium sulfate Allergy Unknown nightmares Verified 09/06/20 16:41 codeine [Tylenol-Codeine] Allergy Unknown emesis Verified 09/06/20 16:41 pt states no food allergies Allergy Unknown nka Uncoded 09/06/20 16:41 From Tylenol-Codeine #2 AdvReac Intermediate NAUSEA Uncoded 09/06/20 16:41 Active Medications: Current Medications Benzonatate (Benzonatate 100 Mg Capsule) 100 mg PO TID PRN PRN Reason: Cough Cyclobenzaprine HCl (Cyclobenzaprine Hcl 10 Mg Tablet) 10 mg PO TID PRN PRN Reason: Muscle Spasm Last Admin: 09/04/23 08:44 Dose: 10 mg Docusate Sodium (Docusate Sodium 100 Mg Capsule) 100 mg PO DAILY PRN PRN Reason: Constipation Enoxaparin Sodium (Enoxaparin Sodium 40 Mg/0.4 Ml Syringe) 40 mg SUBCUT Q24H VITO Last Admin: 09/03/23 22:13 Dose: 40 mg Gabapentin (Gabapentin 300 Mg Capsule) 300 mg PO TID PRN PRN Reason: Pain, Moderate(Pain Scale 4-6) Last Admin: 09/04/23 08:44 Dose: 300 mg Multivitamins/Vitamin C (Multivitamin Tablet) 1 tab PO DAILY COUNT INCLUDES THE [facility] Last Admin: 09/04/23 08:44 Dose: 1 tab Omeprazole (Omeprazole 40 Mg Capsule.Dr) 40 mg PO DAILY@0630 COUNT INCLUDES THE [facility] Last Admin: 09/04/23 06:23 Dose: 40 mg Ondansetron HCl (Ondansetron Hcl 4 Mg/2 Ml Vial) 4 mg IVPUSH Q8H PRN PRN Reason: Nausea and Vomiting Pravastatin Sodium (Pravastatin Sodium 40 Mg Tablet) 40 mg PO BEDTIME COUNT INCLUDES THE [facility] Last Admin: 09/03/23 22:13 Dose: 40 mg Sodium Chloride (0.9 % Sodium Chloride Flush 3 Ml Syringe) 3 ml IVFLUSH QSHIFT COUNT INCLUDES THE [facility] Last Admin: 09/04/23 08:45 Dose: 3 ml Spironolactone (Spironolactone 25 Mg Tablet) 50 mg PO DAILY PRN; Protocol PRN Reason: Edema Topiramate (Topiramate 25 Mg Tablet) 50 mg PO BEDTIME COUNT INCLUDES THE [facility] Last Admin: 09/03/23 22:13 Dose: 50 mg Trazodone HCl (Trazodone Hcl 100 Mg Tablet) 100 mg PO BEDTIME COUNT INCLUDES THE [facility] Last Admin: 09/03/23 22:13 Dose: 100 mg Home Medications Medication Instructions Recorded Confirmed Last Taken Type pravastatin 40 mg tablet 40 mg PO BEDTIME 04/24/20 09/03/23 09/02/23 History trazodone 100 mg tablet 100 mg PO BEDTIME Insomnia 04/24/20 09/03/23 09/02/23 History cyclobenzaprine 10 mg tablet 10 mg PO TID PRN Muscle Spasm 09/06/20 09/03/23 Unknown History linaclotide 290 mcg capsule 290 mcg PO DAILY PRN Constipation 09/06/20 09/03/23 Unknown History (Linzess) [id number] 8 mg-folic 400 1 tab PO DAILY 09/06/20 09/03/23 09/03/23 History mcg-K 50 mcg-lutein 300 mcg tablet (Multivitamin Women 50 Plus) omeprazole 40 mg capsule,delayed 40 mg PO DAILY 09/06/20 09/03/23 09/03/23 History release spironolactone 50 mg tablet 50 mg PO DAILY PRN Edema 09/06/20 09/03/23 Unknown History topiramate 50 mg tablet 50 mg PO BEDTIME 09/06/20 09/03/23 09/02/23 History Physical Exam Vital Signs: Vital Signs: Last Vital Signs Temp 97.6 F 09/04/23 09:24 Pulse 69 09/04/23 09:24 Resp 17 09/04/23 09:24 BP 126/74 09/04/23 09:24 Pulse Ox 100 09/04/23 09:24 O2 Del Method Room Air 09/04/23 09:24 BMI result Body Mass Index 34.9 Const: General: comfortable and no acute distress Orientation/consciousness: patient oriented x3 HEENT: Other: Unremarkable Head: Yes normal to inspection Neck: Neck: Yes normal visual inspection Chest: Chest palpation & inspection: normal inspection of the chest Resp: Auscultation: clear to auscultation bilaterally Cardio: Palpation: normal PMI Heart sounds: S1 normal heart sound present, S2 normal heart sound present, no gallops, no murmurs and no rubs GI: Palpation (GI): Soft to palpation Back/Spine/Pelvis: Other: unremarkable Skin: General skin exam: no rashes or lesions noted Neuro: General: patient oriented x3 Extrem: General: Yes normal to inspection Psych: Mental Status: mental status grossly normal Objective Labs and Meds 09/03/23 14:55 09/03/23 14:55 Lab results: Laboratory Results - last 24 hr 09/03/23 09/03/23 14:55 18:16 WBC 6.4 RBC 4.41 Hgb 13.3 Hct 39.7 MCV 90.0 MCH 30.2 MCHC 33.5 RDW 13.2 Plt Count 311 MPV 10.0 Immature Gran % (Auto) 0.2 Neut % (Auto) 59.0 Lymph % (Auto) 30.3 [place] % (Auto) 6.9 Eos % (Auto) 2.8 Baso % (Auto) 0.8 Lymph # (Auto) 1.9 [place] # (Auto) 0.4 Eos # (Auto) 0.2 Baso # (Auto) 0.1 Abs Immat Gran (auto) 0.01 Absolute Neuts (auto) 3.8 Absolute Nucleated RBC 0.000 Nucleated RBC % (auto) 0.0 Sodium 143 Potassium 3.6 Chloride 110 H Carbon Dioxide 26 Anion Gap 11 L BUN 8 L Creatinine 0.63 Estim Creat Clear Calc 109.7 Estimated GFR > 60 Random Glucose 96 Calcium 8.9 D Total Bilirubin 0.2 Direct Bilirubin < 0.2 AST 14 ALT 15 Alkaline Phosphatase 77 Troponin I High Sens < 2.7 B-Natriuretic Peptide 24 Total Protein 6.9 Albumin 4.0 Lipase 18 Urine Color Yellow Urine Appearance Clear Urine pH 7.0 Ur Specific [place] <= 1.005 Urine Protein Negative Urine Glucose (UA) Negative Urine Ketones Negative Urine Blood Negative Urine Nitrite Negative Ur Leukocyte Esterase Negative Influenza Type A (PCR) NEGATIVE Influenza Type B (PCR) NEGATIVE RSV RNA Qual (PCR) NEGATIVE SARS-CoV-2 RNA (RT-PCR) NEGATIVE ECG Interpretation: EKG shows sinus rhythm at 63/Min; borderline DC prolongation at 202 milliseconds. Otherwise unremarkable. Imaging Radiologist's impression: Impressions Chest X-Ray 09/03/23 14:41 IMPRESSION: Unremarkable chest examination. Head CT 09/03/23 18:00 IMPRESSION: No acute intracranial process seen. Assessment and Plan (1) Syncope and collapse: Status: Acute Plan Baseline EKG has borderline DC but otherwise unremarkable. High sensitivity troponins are within normal limits. Cardiac BNP is also within normal limits. Telemetry unremarkable. Overall, doubt any cardiac etiology for syncope. We will review the echocardiogram as well once completed. Procedures Date of Service Date of Service: 09/04/23
--- NOTE | 2023-09-04 11:12 | MHC.CM.PN ---
09/04/23 11:06 - Case Mgmt [id number] : 10/30/1970 Patient Age: 52 CM met with Patient at bedside and addressed HIGGINS with her, providing Patient with the original and a copy will be placed on the chart. 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 Home self care is the goal and CM has initiated and will follow for dc planning.Patient declined completing a HCP and her PCP is Dr. Gato Dale.
--- NOTE | 2023-09-04 11:16 | MHC.CM.PN ---
PT is recommending home with services; CM will follow.
--- NOTE | 2023-09-04 12:59 | HO.PM.IMPN ---
Subjective Subjective Date of Service: 09/04/23 Interval History: seen and examined this morning follow up for possible syncopal event no overnight events, no recurrent episodes of syncope denies chest pain, palpitations, shortness of breath Review of Systems Review of Systems: Yes all other systems are reviewed and are negative Constitutional Constitutional: Denies chills and Denies fever(s) Cardiovascular Cardiovascular: Denies chest pain, Denies palpitations and Denies dyspnea Respiratory Respiratory: Denies cough and Denies dyspnea Gastrointestinal Gastrointestinal: Denies abdominal pain, Denies nausea and Denies vomiting Endocrine Endocrine: Denies palpitations Physical Exam Vital Signs: Vital Signs: Last Vital Signs Temp 97.6 F 09/04/23 09:24 Pulse 69 09/04/23 09:24 Resp 17 09/04/23 09:24 BP 126/74 09/04/23 09:24 Pulse Ox 100 09/04/23 09:24 O2 Del Method Room Air 09/04/23 09:24 BMI result Body Mass Index 34.9 Const: General: cooperative, comfortable, no acute distress, alert and awake Nutritional Appearance: overweight Orientation/consciousness: patient oriented x3 Resp: Effort & Inspection: normal respiratory effort, able to speak in complete sentences, no respiratory distress and no use of accessory muscles Cardio: Rate: regular rate GI: Inspection: No distended Palpation (GI): Soft to palpation and nontender Neuro: Other: grossly nonfocal; able to move all 4 extremities spontaneously General: patient oriented x3 and moves all extremities Extrem: General: Yes no pedal edema Objective Data Active Medications Benzonatate (Benzonatate 100 Mg Capsule) 100 mg PO TID PRN PRN Reason: Cough Cyclobenzaprine HCl (Cyclobenzaprine Hcl 10 Mg Tablet) 10 mg PO TID PRN PRN Reason: Muscle Spasm Last Admin: 09/04/23 08:44 Dose: 10 mg Documented By: PATRICIA Docusate Sodium (Docusate Sodium 100 Mg Capsule) 100 mg PO DAILY PRN PRN Reason: Constipation Enoxaparin Sodium (Enoxaparin Sodium 40 Mg/0.4 Ml Syringe) 40 mg SUBCUT Q24H [facility] Last Admin: 09/03/23 22:13 Dose: 40 mg Documented By: SHEILA Gabapentin (Gabapentin 300 Mg Capsule) 300 mg PO TID PRN PRN Reason: Pain, Moderate(Pain Scale 4-6) Last Admin: 09/04/23 08:44 Dose: 300 mg Documented By: PATRICIA Multivitamins/Vitamin C (Multivitamin Tablet) 1 tab PO DAILY [facility] Last Admin: 09/04/23 08:44 Dose: 1 tab Documented By: PATRICIA Omeprazole (Omeprazole 40 Mg Capsule.Dr) 40 mg PO DAILY@0630 [facility] Last Admin: 09/04/23 06:23 Dose: 40 mg Documented By: SHEILA Ondansetron HCl (Ondansetron Hcl 4 Mg/2 Ml Vial) 4 mg IVPUSH Q8H PRN PRN Reason: Nausea and Vomiting Pravastatin Sodium (Pravastatin Sodium 40 Mg Tablet) 40 mg PO BEDTIME [facility] Last Admin: 09/03/23 22:13 Dose: 40 mg Documented By: SHEILA Sodium Chloride (0.9 % Sodium Chloride Flush 3 Ml Syringe) 3 ml IVFLUSH QSHIFT [facility] Last Admin: 09/04/23 08:45 Dose: 3 ml Documented By: PATRICIA Spironolactone (Spironolactone 25 Mg Tablet) 50 mg PO DAILY PRN; Protocol PRN Reason: Edema Topiramate (Topiramate 25 Mg Tablet) 50 mg PO BEDTIME [facility] Last Admin: 09/03/23 22:13 Dose: 50 mg Documented By: SHEILA Trazodone HCl (Trazodone Hcl 100 Mg Tablet) 100 mg PO BEDTIME [facility] Last Admin: 09/03/23 22:13 Dose: 100 mg Documented By: SHEILA Labs 09/03/23 14:55 09/03/23 14:55 Labs: Laboratory Results - last 24 hr 09/03/23 09/03/23 14:55 18:16 MCV 90.0 MCH 30.2 MCHC 33.5 RDW 13.2 Plt Count 311 MPV 10.0 Immature Gran % (Auto) 0.2 Neut % (Auto) 59.0 Lymph % (Auto) 30.3 [place] % (Auto) 6.9 Eos % (Auto) 2.8 Baso % (Auto) 0.8 Lymph # (Auto) 1.9 [place] # (Auto) 0.4 Eos # (Auto) 0.2 Baso # (Auto) 0.1 Abs Immat Gran (auto) 0.01 Absolute Neuts (auto) 3.8 Absolute Nucleated RBC 0.000 Nucleated RBC % (auto) 0.0 Anion Gap 11 L Estim Creat Clear Calc 109.7 Estimated GFR > 60 Random Glucose 96 Calcium 8.9 D Total Bilirubin 0.2 Direct Bilirubin < 0.2 AST 14 ALT 15 Alkaline Phosphatase 77 Troponin I High Sens < 2.7 B-Natriuretic Peptide 24 Total Protein 6.9 Albumin 4.0 Lipase 18 Urine Color Yellow Urine Appearance Clear Urine pH 7.0 Ur Specific [place] <= 1.005 Urine Protein Negative Urine Glucose (UA) Negative Urine Ketones Negative Urine Blood Negative Urine Nitrite Negative Ur Leukocyte Esterase Negative Influenza Type A (PCR) NEGATIVE Influenza Type B (PCR) NEGATIVE RSV RNA Qual (PCR) NEGATIVE SARS-CoV-2 RNA (RT-PCR) NEGATIVE Assessment and Plan (1) Syncope and collapse: Status: Acute Plan Pt is a 58-year-old female with a PMH significant for?HLD, migraines, and GERD who presents to the ED for evaluation of syncopal episode at home episode of unresponsiveness episode of LOC reportedly 3-4 minutes long with no seizure like activity seen by cardiology, doubt cardiac source; echo pending Orthostatics negative neurology consult pending Lower extremity weakness Pt with numbness/tingling from neck down x [address] Root, nerve conduction testing apparently negative CT of head negative for acute intracranial pathology gabapentin prn for pain Neurology consult pending -defer further work up until after neurology evaluation seen by PT - rec home with PT services when medically ready for discharge HLD Continue statin GERD PPI Migraines Continue topiramate Hx of lower leg edema Continue spironolactone p.r.n. Full Code Attending:?Dr. Herring DVT Prophylaxis: Lovenox Patient will be admitted to the hospital under observation on telemetry for treatment and further evaluation of syncopal episode. Patient will require overnight hospitalization for close monitoring cardiac function, additional imaging, and specialist consultation with both Cardiology and Neurology. Quality Stroke Does the patient have a stroke diagnosis?: No VTE Prior VTE?: No VTE Risk Level:: Medical - moderate - high VTE Device Contraindication: Treatment Not Indicated VTE Drug Contraindication: N/A - Med Ordered
--- NOTE | 2023-09-04 15:46 | P.CNNE_ITS ---
History of Present Illness Data of Consult Service Date: 09/04/23 Primary Care Provider: DO GARFIELD Ricks Reason for consult: Numbness 58 years old woman I was asked to see for numbness. I saw her in emergency room when her was sitting with her. Apparently she was brought to hospital after she fell down and passed out at home. stated that she was unresponsive for few minutes but not shaking or having any abnormal movement. There was no physical injury or incontinence. Since then she has been okay. There is no prior history of passing out. She had seen Dr. Root in the past for numbness and tingling in her EMG nerve conduction study did not reveal any significant abnormality. She said that numbness was present all over body from top of her head to the toes and there was no area of her body that was not numb and this problem was affecting her for about a year. Review of Systems 2 Review of Systems: No recent cold or flu-like illness drug use or alcohol use. [facility] Past Medical History Medical History Obesity (BMI 30-39.9) Hypercholesteremia GERD (gastroesophageal reflux disease) Hiatal hernia Pseudotumor cerebri Malabsorption due to intolerance, not elsewhere classified Hx of ectopic Family History Family History Father Bone cancer History of hypothyroidism Diabetes mellitus Mother Diabetes mellitus Hyperuricemia, pulmonary hypertension, renal failure, and alkalosis syndrome Brother No problems noted. Daughter No problems noted. Daughter No problems noted. Son No problems noted. Son No problems noted. Surgical History Surgical History History of repair of hiatal hernia Hx of section History of dilatation and curettage History of partial hysterectomy History of sleeve gastrectomy Hx of cholecystectomy Social History Social History Alcohol intake: never Patient Tobacco Use Status: Never used Tobacco Smoked in Last 30 Days: No Use of substances other than those prescribed or required for medical reasons: No Advance Directives: No Nutrition Risks: No Nutritional Risk Patient : No Meds Allergies Allergy/AdvReac Type Severity Reaction Status Date / Time varenicline [From CHANTIX] Allergy Severe NIGHTMARES Verified 09/06/20 16:41 acetaminophen Allergy Unknown emesis Verified 09/06/20 16:41 [Tylenol-Codeine] barium sulfate Allergy Unknown nightmares Verified 09/06/20 16:41 codeine [Tylenol-Codeine] Allergy Unknown emesis Verified 09/06/20 16:41 pt states no food allergies Allergy Unknown nka Uncoded 09/06/20 16:41 From Tylenol-Codeine #2 AdvReac Intermediate NAUSEA Uncoded 09/06/20 16:41 Active Medications: Current Medications Benzonatate (Benzonatate 100 Mg Capsule) 100 mg PO TID PRN PRN Reason: Cough Cyclobenzaprine HCl (Cyclobenzaprine Hcl 10 Mg Tablet) 10 mg PO TID PRN PRN Reason: Muscle Spasm Last Admin: 09/04/23 08:44 Dose: 10 mg Docusate Sodium (Docusate Sodium 100 Mg Capsule) 100 mg PO DAILY PRN PRN Reason: Constipation Enoxaparin Sodium (Enoxaparin Sodium 40 Mg/0.4 Ml Syringe) 40 mg SUBCUT Q24H [facility] Last Admin: 09/03/23 22:13 Dose: 40 mg Gabapentin (Gabapentin 100 Mg Capsule) 100 mg PO TID PRN PRN Reason: Pain, Moderate(Pain Scale 4-6) Multivitamins/Vitamin C (Multivitamin Tablet) 1 tab PO DAILY [facility] Last Admin: 09/04/23 08:44 Dose: 1 tab Omeprazole (Omeprazole 40 Mg Capsule.Dr) 40 mg PO DAILY@0630 [facility] Last Admin: 09/04/23 06:23 Dose: 40 mg Ondansetron HCl (Ondansetron Hcl 4 Mg/2 Ml Vial) 4 mg IVPUSH Q8H PRN PRN Reason: Nausea and Vomiting Pravastatin Sodium (Pravastatin Sodium 40 Mg Tablet) 40 mg PO BEDTIME [facility] Last Admin: 09/03/23 22:13 Dose: 40 mg Sodium Chloride (0.9 % Sodium Chloride Flush 3 Ml Syringe) 3 ml IVFLUSH QSHIFT [facility] Last Admin: 09/04/23 08:45 Dose: 3 ml Spironolactone (Spironolactone 25 Mg Tablet) 50 mg PO DAILY PRN; Protocol PRN Reason: Edema Topiramate (Topiramate 25 Mg Tablet) 50 mg PO BEDTIME [facility] Last Admin: 09/03/23 22:13 Dose: 50 mg Trazodone HCl (Trazodone Hcl 100 Mg Tablet) 100 mg PO BEDTIME [facility] Last Admin: 09/03/23 22:13 Dose: 100 mg Home Medications Medication Instructions Recorded Confirmed Last Taken Type pravastatin 40 mg tablet 40 mg PO BEDTIME 04/24/20 09/03/23 09/02/23 History trazodone 100 mg tablet 100 mg PO BEDTIME Insomnia 04/24/20 09/03/23 09/02/23 History cyclobenzaprine 10 mg tablet 10 mg PO TID PRN Muscle Spasm 09/06/20 09/03/23 Unknown History linaclotide 290 mcg capsule 290 mcg PO DAILY PRN Constipation 09/06/20 09/03/23 Unknown History (Linzess) [id number] 8 mg-folic 400 1 tab PO DAILY 09/06/20 09/03/23 09/03/23 History mcg-K 50 mcg-lutein 300 mcg tablet (Multivitamin Women 50 Plus) omeprazole 40 mg capsule,delayed 40 mg PO DAILY 09/06/20 09/03/23 09/03/23 History release spironolactone 50 mg tablet 50 mg PO DAILY PRN Edema 09/06/20 09/03/23 Unknown History topiramate 50 mg tablet 50 mg PO BEDTIME 09/06/20 09/03/23 09/02/23 History Physical Exam 2 Vital Signs: Vital Signs: Last Vital Signs Temp 97.8 F 09/04/23 14:28 Pulse 83 09/04/23 14:28 Resp 17 09/04/23 14:28 BP 118/56 L 09/04/23 14:28 Pulse Ox 97 09/04/23 14:28 O2 Del Method Room Air 09/04/23 14:28 BMI result Body Mass Index 34.9 Neuro: Other: She is alert and awake with normal spontaneity of speech fluency comprehension and affect. Face is symmetrical. Visual vernon are full. Deep tendon reflexes are trace to absent with flexor plantars. Affect is normal. Results Labs 09/03/23 14:55 09/03/23 14:55 Labs: Urine 09/03/23 Range/Units 18:16 Urine Color Yellow Urine Appearance Clear Urine pH 7.0 (5.0-9.0) Ur Specific [place] <= 1.005 (1.005-1.025) Urine Protein Negative (Neg-Trace) mg/dL Urine Glucose (UA) Negative (Negative) mg/dL Noncontrast head CT did not reveal any significant abnormality. Assessment and Plan (1) Syncope and collapse: Status: Acute 58 years old woman with no prior history of syncope or seizure disorder was brought to hospital after she passed out at home. According to family she fell down and was unconscious for few minutes but not shaking and did not have any obvious reason or physical injury from it. She also complained of feeling numb from head to toe for about a year. Examination did not reveal any significant abnormality. Etiology of both events or symptoms was unclear. As far as numbness is concerned, this type of numbness affecting all over her body for about a year is difficult to explain from a central or peripheral lesion. Because of possibility of seizure disorder, a noncontrast MRI of brain in the EEG a reasonable tests to do. These tests can be done inpatient or outpatient. In the meantime she should not drive and stay away from activities that could put her life in danger in case she would pass out again. She can be followed in our office with Dr. Root after discharge. Procedures Date of Service Date of Service: 09/04/23
[2023-09-04] MEDS: traZODone HCL 100 MG TABLET PO (20:10)
[2023-09-04] MEDS: Pravastatin Sodium 40 MG TABLET PO (20:10)
[2023-09-04] MEDS: Enoxaparin Sodium 40 MG/0.4 ML SYRINGE SUBCUT (20:10)
[2023-09-04] MEDS: Topiramate 25 MG TABLET 50 MG PO (20:10)
[2023-09-04] MEDS: Gabapentin 100 MG CAPSULE PO (20:13)
[2023-09-05 00:12] VITALS: BP 111/56; PULSE 74; RESP 18; TEMP 36.4; O2SAT 93
[2023-09-05] MEDS: Omeprazole 40 MG CAPSULE.DR PO (06:37)
[2023-09-05 07:21] VITALS: BP 129/75; PULSE 72; RESP 16; TEMP 36.9; O2SAT 96
[2023-09-05] MEDS: Multivitamin TABLET 1 TAB PO (09:16)
[2023-09-05] MEDS: 0.9 % Sodium Chloride Flush 3 ML SYRINGE IVFLUSH (09:16)
[2023-09-05] MEDS: Gabapentin 100 MG CAPSULE PO (09:20)
[2023-09-05] MEDS: Cyclobenzaprine HCl 10 MG TABLET PO (09:21)
--- NOTE | 2023-09-05 09:58 | P.DS_ITS ---
DS: Providers Provider Date of Service: 09/05/23 Date of admission: 09/03/23 19:58 Date of discharge: 09/05/23 Primary care physician: Gato Dale DO Consults: 09/03/23 20:03 Consult to Cardiology Routine Consulting Provider: [facility] Reason for consultation: Syncopal episode at home, LOC x3-4 minutes Consult to Neurology Routine Consulting Provider: [facility] [place] Reason for consultation: Tingling from neck down x1 year; syncopal episode today w/leg weakness Attending physician on discharge: Will Tsang Discharging clinician: Lilliam Pugh DS: Diagnosis Discharge Diagnosis (1) Syncope and collapse: Status: Acute DS: Summary Hospital Course Hospital Course: From H&P on the day of admission Pt is a 58-year-old female with a PMH significant for?HLD, migraines, and GERD who presents to the ED for evaluation of syncopal episode at home. Patient states she was walking in her home earlier today when she suddenly felt her legs give out and she collapsed to the floor. Episode was witnessed by her who states she was ?out flat for 3-4 minutes. Denies seizure-like activity during event and no postictal state. Reports she has been eating and drinking normally. No sick contacts. Denies any recent illnesses. Denies significant cardiac history. Patient notes that she has been experiencing whole-body numbness and tingling from neck down for the past year. Has been seen by Dr. Root in Neurology for nerve conduction study which has apparently been negative. Reports is not undergone any MRI imaging. States condition changed last night when she began experiencing sharp shooting pains in lower extremities bilaterally. Reports she felt like she was getting a ?Charley horse? and like the skin on her legs wanted to ?rip apart?. Leg pain continued this morning when patient woke up. After syncopal episode patient also complains of new onset lower extremity weakness, and vision changes where she feels like there is a ?film? over her eyes. Denies headache. No facial droop, difficulty word finding, dysarthria. Denies fever, chills, nausea, vomiting, abdominal pain. No chest pain/pressure, palpitations. Denies shortness of breath. In the ED pt was Labs were grossly unremarkable. No leukocytosis. Stable H&H. No significant electrolyte abnormalities. Renal and hepatic function WNL. Random glucose 96. Troponin negative. Orthostatics negative. UA negative for UTI. Tested negative for influenza, RSV, COVID. CXR was unremarkable. CT?of head showed no acute intracranial process. EKG demonstrated normal sinus rhythm without evidence of ST elevations or depressions. Pt was treated with IVF. Pt will be admitted to the hospital under observation for treatment and further evaluation of syncopal episode. episode of unresponsiveness episode of LOC reportedly 3-4 minutes long with no seizure like activity. Brain CT unremarkable. Seen by cardiology, less likely cardiac source, BNP and cardiac enzymes within normal limits; echo obtained showing preserved EF, normal diastolic dysfunction, no wall motion abnormalities, no pumonary hypertension and no valvular dysfunction. No adverse events noted on telemetry. Orthostatic blood pressures were negative. She was seen by neurology who recommended outp atient noncontrast MRI of the brain and outpatient EEG. In addition it was recommended for her to follow up with her primary neurologist Dr. Root. In the meantime it was recommend not to drive, bath or swim alone etc. She had no further events during her hospital stay. Full body numbness Patient reports numbness/tingling from neck down x 1 year. She follows with Dr. Root and outpatient nerve conduction testing reportedly negative. CT of head negative for acute intracranial pathology. As far as numbness is concerned, this type of numbness affecting all over her body for about a year is difficult to explain from a central or peripheral lesion. Recommend outpatient MRI as above. She was seen by PT who recommended home with PT services. Time Attestation Discharge Coordination Time (in mins): 32 Quality: Safe Use of Opioids Does Pt have an Active Cancer Diagnosis on the Problem List?: No Quality: Stroke Does the patient have a stroke diagnosis?: No Physical Exam Vital Signs: Vital Signs: Last Vital Signs Temp 98.4 F 09/05/23 07:21 Pulse 72 09/05/23 07:21 Resp 16 09/05/23 07:21 BP 129/75 09/05/23 07:21 Pulse Ox 96 09/05/23 07:21 O2 Del Method Room Air 09/05/23 07:21 BMI result Body Mass Index 35.0 Const: General: cooperative, comfortable, no acute distress, alert and awake Nutritional Appearance: overweight Orientation/consciousness: patient oriented x3 Resp: Effort & Inspection: normal respiratory effort, able to speak in complete sentences, no respiratory distress and no use of accessory muscles Cardio: Rate: regular rate GI: Inspection: No distended Palpation (GI): Soft to palpation and n ontender Neuro: Other: grossly nonfocal; able to move all 4 extremities spontaneously General: patient oriented x3, moves all extremities and CN's II-XI intact bilaterally Extrem: General: Yes no pedal edema Discharge Plan Discharge Anticipated Discharge Date/Time: 09/05/23 10:15 Patient Disposition: Home Health Service Discharge Diagnosis: syncope Referrals: Ray RIVAS [Outside] - 1 Week Gato Dale DO [Primary Care Provider] - 1 Week Flip Root MD [Physician] - 1 Week Discharge Medications: Continued topiramate 50 mg tablet 50 mg PO BEDTIME omeprazole 40 mg capsule,delayed release(DR/EC) 40 mg PO DAILY spironolactone 50 mg tablet 50 mg PO DAILY PRN (Reason: Edema) Linzess 290 mcg capsule 290 mcg PO DAILY PRN (Reason: Constipation) Multivitamin Women 50 Plus 8 mg iron-400 mcg-300 mcg tablet 1 tab PO DAILY cyclobenzaprine 10 mg tablet 10 mg PO TID PRN (Reason: Muscle Spasm) pravastatin 40 mg tablet 40 mg PO BEDTIME trazodone 100 mg tablet 100 mg PO BEDTIME Discharge Orders: Discharge Order (Routine); Ordered 09/05/23 Ordered By: Lilliam Pugh Activity on Discharge: As tolerated Stand Alone Forms: Patient Portal Discharge page Care Plan Goals: see below Health Concerns: episode of unresponsiveness Plan of Treatment: recommend outpatient noncontrast MRI of the brain and EEG - call to discuss with PCP call to schedule follow up appointment with neurology - Dr. Root Recommend to avoid driving, bathing/swimming alone until work up completed and follow up with neurology Assessment: see discharge summary
--- NOTE | 2023-09-05 10:21 | MHC.CM.PN ---
Pt has been medically cleared for DC, she will go home via private transport, [facility] services have been referred to [facility].
--- NOTE | 2023-09-05 10:23 | P.F2F_ITS ---
Service Date Service Date: 09/05/23 Encounter Date of encounter: 09/05/23 Reasons for Services Signs and symptoms assessed: needs PT for Gait training, therapeutic exercises , safety, balance Reason for physical therapy: home safety and mobility and therapeutic exercises Overseeing Care: Gato Dale Homebound: Leaving the home is medically contraindicated at this time without the asist of a device and/or another person due th the listed conditions above and below. Reason homebound: poor balance / fall risk and unable to drive Certification: Based on the above findings, I certify that this patient is confined to the home and needs intermittent intermediate care, physical therapy and/or speech therapy, or continues to need occupational therapy. The patient is under my care, and I have initiated the establishment of the plan of care. The patient will be followed by a physician who will periodically review the plan of care. Time Spent With Patient Time: Total time managing care of this patient today ____ minutes.
[2023-09-05 11:13] VITALS: BP 114/66; PULSE 73; RESP 16; TEMP 36.8; O2SAT 98
== END 2023-09-05 12:20 | disposition home health service (06) ==
LOC: HO.ED 17:05 → HO.EDOVER 20:18 → HO.IMC 09-04 15:27
PROVIDERS: Admitting Provider Student in an Organized Health Care Education/Training Program; Emergency Provider Emergency Medicine; PCP Internal Medicine; Visit Provider Physician Assistant Medical
DX: R55 Syncope and collapse (principal); R20.2 Paresthesia of skin; R53.1 Weakness; R26.81 Unsteadiness on feet; M79.605 Pain in left leg; M79.604 Pain in right leg; K21.9 Gastro-esophageal reflux disease without esophagitis; E78.5 Hyperlipidemia, unspecified; G43.909 Migraine, unspecified, not intractable, without status migrainosus; R60.0 Localized edema; Z91.81 History of falling; Z11.52 Encounter for screening for COVID-19; Z20.828 Contact with and (suspected) exposure to other viral communicable diseases
CPT/HCPCS: 0241U; 36415; 70450; 71045; 80048; 80076; 81003; 83690; 83880; 84484; 85025; 93005; 93306; 96360; 96361; 96372; 97162; 99222; 99285; J1650; Q9957

== ENCOUNTER → 2023-09-03 14:13 | Outpatient (BNV) | payer OTHER, SELFPAY | PROVIDERS: Emergency Provider Emergency Medicine; PCP Internal Medicine; Visit Provider Internal Medicine | DX: R55 Syncope and collapse (principal) | CPT/HCPCS: 93010 ==

== ENCOUNTER 2023-09-03 19:58 | Outpatient (BNV) | payer OTHER, SELFPAY | END 2023-09-04 07:00 | PROVIDERS: Admitting Provider Student in an Organized Health Care Education/Training Program; Emergency Provider Emergency Medicine; PCP Internal Medicine; Visit Provider Internal Medicine | DX: R55 Syncope and collapse (principal) | CPT/HCPCS: 93306 ==

== ENCOUNTER → 2023-09-03 19:58 | Outpatient (BNV) | payer OTHER, SELFPAY | PROVIDERS: Admitting Provider Student in an Organized Health Care Education/Training Program; Emergency Provider Emergency Medicine; PCP Internal Medicine; Visit Provider Psychiatry & Neurology Neurology | DX: R55 Syncope and collapse (principal) | CPT/HCPCS: 99222 ==

== ENCOUNTER → 2023-09-03 19:58 | Outpatient (BNV) | payer OTHER, SELFPAY | PROVIDERS: Admitting Provider Student in an Organized Health Care Education/Training Program; Emergency Provider Emergency Medicine; PCP Internal Medicine; Visit Provider Internal Medicine | DX: R55 Syncope and collapse (principal) | CPT/HCPCS: 99222 ==

== ENCOUNTER → 2023-09-03 19:58 | Outpatient (BNV) | payer OTHER, SELFPAY | PROVIDERS: Admitting Provider Student in an Organized Health Care Education/Training Program; Emergency Provider Emergency Medicine; PCP Internal Medicine; Visit Provider Physician Assistant Medical | DX: R55 Syncope and collapse (principal) | CPT/HCPCS: 99222; 99232; 99239; G0180 ==

== ENCOUNTER 2023-10-19 14:08 | Outpatient (REF) | payer OTHER, SELFPAY ==
--- NOTE | ~2023-10-19 | MR_ITS ---
EXAMINATION: MR BRAIN WITHOUT CONTRAST CLINICAL INFORMATION: Whole body numbness and tingling COMPARISON: MRI of the brain without contrast 08/08/2010 TECHNIQUE: Multiplanar multisequence MR imaging of the brain was obtained without intravenous contrast. FINDINGS: There is no acute infarct on diffusion-weighted imaging. There is no intracranial hemorrhage on iron-sensitive imaging. No extra-axial collection or mass effect/herniation. There are a few scattered foci of T2/FLAIR hyperintense signal involving the periventricular, deep, and subcortical white matter of the supratentorial brain which appears slightly progressed compared to MRI from 2010. No hydrocephalus. The ventricles are normal in morphology and size. The major flow voids at the skull base are preserved. Stable mildly expanded and partially empty sella. The cerebellar tonsils are normally positioned. The craniocervical junction is normal. Marrow signal is within normal limits. The visualized soft tissues are without significant abnormality. Right mastoid fluid. MR/MR head/brain wo con IMPRESSION: 1. No acute intracranial abnormality. 2. Slight progression of mild nonspecific supratentorial white matter T2/FLAIR hyperintense signal. While this may reflect sequela of chronic microvascular ischemia, demyelinating disease is not excluded on the basis of this examination and should be correlated clinically. 3. Stable mildly expanded and partially empty sella,
== END 2023-10-19 14:09 | disposition home or self-care (01) ==
LOC: HO.MRI 14:08
PROVIDERS: PCP Internal Medicine; Visit Provider Registered Nurse
DX: R55 Syncope and collapse (principal)
CPT/HCPCS: 70551

== ENCOUNTER 2024-01-28 15:09 | Outpatient (REF) | payer OTHER, SELFPAY ==
--- NOTE | ~2024-01-28 | MR_ITS ---
EXAMINATION: MR CERVICAL SPINE WITHOUT CONTRAST CLINICAL INFORMATION: Cervical myelopathy COMPARISON: None available. TECHNIQUE: MRI of the cervical spine was obtained using routine sequences without contrast. FINDINGS: Reversal of the normal cervical lordosis with dextrocurvature of the cervical spine. Grade 1 anterolisthesis of C4-C5 and C6-C7. Cervical vertebral body heights are maintained. Prominent degenerative endplate edema at C4-5 and C5-C6. Mild multilevel posterior element edema, likely on the basis of facet arthropathy/degenerative change. The cervical spinal cord is normal in signal. C2-C3: No significant spinal canal stenosis. Advanced right-sided facet arthropathy. The neural foramen remain patent. C3-C4: No significant spinal canal stenosis. Facet arthropathy. The neural foramen are patent. C4-C5: Severe left and moderate right facet arthropathy. Grade 1 anterolisthesis with uncovering of the intervertebral disc space. There is a diffuse disc bulge with left subarticular/foraminal disc protrusion. Infolding of the ligamentum flavum. Mild to moderate spinal canal stenosis with asymmetric narrowing of the left ventral thecal sac. Severe left and [id number] right neural foraminal stenosis. C5-C6: Disc osteophyte complex and ligamentum flavum infolding with moderate spinal canal stenosis. Uncovertebral and facet arthropathy with severe left and moderate right neural foraminal stenosis. C6-C7: Small central disc protrusion indents the ventral thecal sac without significant stenosis. Right greater than left facet arthropathy. The neural foramen are patent. C7-T1: No significant spinal canal or neural foraminal stenosis. Rounded lesion along the inferior aspect of the right parotid gland measuring up to 1.2 cm. Expanded, partially empty sella turcica. MR/MR cervical spine wo con IMPRESSION: Multilevel degenerative changes of the cervical spine with moderate spinal canal stenosis at C5-C6 and [id number] spinal canal stenosis at C4-C5. Severe left neural foraminal stenosis at C4-C5 and C5-C6. Rounded lesion along the inferior aspect of the right parotid gland measuring up to 1.2 cm. Finding may represent a lymph node or primary parotid neoplasm and correlation with targeted ultrasound is recommended. Electronically signed by: Ken Mejia MD 02/19/2024 07:00 PM EDT
== END 2024-01-28 15:10 | disposition home or self-care (01) ==
LOC: HO.MRI 15:09
PROVIDERS: PCP Internal Medicine; Visit Provider Psychiatry & Neurology Neurology
DX: G95.9 Disease of spinal cord, unspecified (principal)
CPT/HCPCS: 72141

== ENCOUNTER 2024-02-25 12:43 | Outpatient (REF) | payer OTHER, SELFPAY ==
--- NOTE | ~2024-02-25 | US_ITS ---
EXAMINATION: US SOFT TISSUE HEAD/NECK CLINICAL INFORMATION: Lesion of parotid gland. COMPARISON: MR cervical spine without contrast 01/28/2024. TECHNIQUE: Linear transducer grayscale and color Doppler examination of the right parotid gland. FINDINGS: The bilateral parotid glands are normal in echotexture and show no ductal dilatation or sialolith. The right parotid gland contains a 4 x 2 x 2 mm lymph node with normal architectural features. No sizable lymphadenopathy is seen. No mass or fluid collection is seen. US/US soft tiss head and/or neck IMPRESSION: A nonpathologically enlarged right intraparotid lymph node is seen. The parotid glands are otherwise unremarkable. Electronically signed by: Wing Verde MD 03/03/2024 04:32 PM EDT
== END 2024-02-25 12:44 | disposition home or self-care (01) ==
LOC: HO.US 12:43
PROVIDERS: PCP Internal Medicine; Visit Provider Internal Medicine
DX: K11.9 Disease of salivary gland, unspecified (principal)
CPT/HCPCS: 76536

== ENCOUNTER 2024-05-25 15:05 | Outpatient (REF) | payer OTHER, SELFPAY | END 2024-05-25 15:06 | disposition home or self-care (01) | LOC: HO.MAMMO 15:05 | PROVIDERS: PCP Internal Medicine; Visit Provider Internal Medicine | DX: Z12.31 Encounter for screening mammogram for malignant neoplasm of breast (principal) | CPT/HCPCS: 77063; 77067 ==

== ENCOUNTER → 2024-05-25 15:30 | Outpatient (BNV) | payer OTHER, SELFPAY | PROVIDERS: PCP Internal Medicine; Visit Provider Internal Medicine | DX: Z12.31 Encounter for screening mammogram for malignant neoplasm of breast (principal) | CPT/HCPCS: 77063; 77067 ==

== ENCOUNTER 2025-02-03 22:09 | Emergency (ER) | payer OTHER, SELFPAY ==
--- NOTE | 2025-02-03 | ECG_ITS ---
Test Reason : SYNCOPE Blood Pressure : */* mmHG Vent. Rate : 70 BPM Atrial Rate : 70 BPM P-R Int : 188 ms QRS Dur : 86 ms QT Int : 388 ms P-R-T Axes : 58 12 18 degrees QTcB Int : 419 ms Normal sinus rhythm Nonspecific ST abnormality Abnormal ECG When compared with ECG of 03-Sep-2023 14:44, No significant change was found Referred By: Generic ED Physician Electronically Signed By: WILLIAM SR MD
[2025-02-03 22:16] VITALS: BP 158/79; PULSE 16; RESP 8; TEMP 36.6; O2SAT 98; BMI 26.1
[2025-02-03 23:00] LABS: Hematocrit 39.3 % (37.0-47.0); Hemoglobin 13.4 g/dl (12.0-16.0); Mean Corpuscular HGB Conc 34.1 g/dl (31.0-35.0); Mean Corpuscular Hemoglobin 30.2 pg (27.0-33.0); Mean Corpuscular Volume 88.7 fL (80.0-98.0); NRBC Abs Auto 0.000 X10*3/uL (0.0-0.012); NRBC Pct Auto 0.0 /100WBC (0.0-0.2); Platelet Count 275 X10*3/uL (160-400); Red Blood Count 4.43 X10*6/uL (4.20-5.50); White Blood Count 8.8 X10*3/uL (4.8-10.8)
[2025-02-03 23:02] LABS: Appearance Urine Clear; Glucose Urine UA Negative (Negative); PH 5.5 (5.0-9.0); Specific Gravity - Urine <= 1.005 (1.005-1.025); UMIC TRIGGER UACC YES
[2025-02-03 23:07] LABS: UACC Culture Trigger YES
[2025-02-03 23:11] LABS: Cannabinoid Screen Urine POSITIVE (Not Detect)
[2025-02-03 23:21] LABS: Alanine Aminotransferase 27 U/L (0-31); Albumin Level 4.5 g/dL (3.5-5.0); Alkaline Phosphatase 74 U/L (39-117); Anion Gap 16 (12-20); Aspartate Amino Transferase 25 U/L (5-31); Blood Urea Nitrogen 6 mg/dL (9-16); Calcium 9.0 mg/dL (8.4-10.2); Carbon Dioxide 26 mmol/L (22-29); Chloride 105 mmol/L (96-108); Creatinine Clr Calc Pharmacy 66.5; Estimated Glomerular Filt Rate > 60; Magnesium 2.2 mg/dL (1.6-2.6); Potassium 3.5 mmol/L (3.3-5.1); Sodium 143 mmol/L (135-145); Total Protein 7.2 g/dL (6.5-8.0)
[2025-02-03 23:30] VITALS: BP 114/75; BP 145/78; BP 149/66; PULSE 71; PULSE 73; PULSE 79
[2025-02-03 23:33] VITALS: BP 145/78; PULSE 73; RESP 17; TEMP 36.4; O2SAT 98
[2025-02-04 00:13] VITALS: BP 130/65; PULSE 69; RESP 12; O2SAT 98; O2SAT 99
[2025-02-04 02:20] VITALS: BP 137/72; PULSE 73; RESP 15; TEMP 36.4; O2SAT 97
[2025-02-04 03:20] VITALS: BP 144/94; BP 156/83; PULSE 67; PULSE 74
[2025-02-04 03:21] VITALS: BP 130/97; PULSE 74
--- NOTE | 2025-02-04 03:21 | ED.SYNCOPE ---
HPI - Syncope General Chief Complaint: Syncope Stated Complaint: multiple syncopal episodes Time Seen by Provider: 02/04/25 02:48 Source: patient Mode of arrival: ambulatory Limitations: no limitations History of Present Illness ED Provider: Dr. Renee Still HPI narrative: Patient comes to the emergency room complaining of a syncopal episode today. According to the patient, she does not remember exactly what happened. Patient states that she was at camp with family/friends near [place], [place]. Patient states that after dinner she was able to get up from the table, she was getting ready towards dishes. Patient states that she immediately passed out. Patient states that it was witnessed by her son her lips turned a bit blue, patient had some arm/leg movements but were not tonic-clonic. [facility]. According to the patient, 2 years ago she had the same thing happened. Patient was admitted here. Patient sees Has tried she. Patient states that she has had multiple CT scans, neck ultrasounds, brain MRIs, EEGs, electromyograms, patient is still does not have diagnosis. Patient states that for the last 2 years she has not had any of this episodes but it just happened today. Patient denies any chest pain or any shortness of breath. Patient states that 2 years when this happened, she could not move the left side of her body and slowly she was able to regain motor function. This time, no loss of motor function. However, patient states that she feels a bit numb tingling but has been gradually improving. Patient states that she had a syncopal episode today, she was taking it [facility] hospital. However, seems that there was some kind of disagreement with the staff at [facility] and patient opted to leave and come here instead Related Data Home Medications ?Medication ?Instructions ?Recorded ?Confirmed trazodone 100 mg tablet 100 mg PO BEDTIME Insomnia 04/24/20 09/03/23 cyclobenzaprine 10 mg tablet 10 mg PO TID PRN Muscle Spasm 09/06/20 09/03/23 [id number] 8 mg-folic 400 1 tab PO DAILY 09/06/20 09/03/23 mcg-K 50 mcg-lutein 300 mcg tablet (Multivitamin Women 50 Plus) topiramate 50 mg tablet 50 mg PO BEDTIME 09/06/20 09/03/23 Previous Rx's ?Medication ?Instructions ?Recorded gabapentin 100 mg capsule 100 mg PO TID PRN Pain, 09/05/23 Moderate(Pain Scale 4-6) #15 caps spironolactone 50 mg tablet 50 mg PO DAILY PRN Edema #90 tabs 08/31/24 linaclotide 290 mcg capsule 290 mcg PO DAILY PRN Constipation 11/03/24 (Linzess) #90 caps pravastatin 40 mg tablet 40 mg PO BEDTIME #90 tabs 12/19/24 omeprazole 40 mg capsule,delayed 40 mg PO DAILY #90 caps 01/09/25 release Allergies Allergy/AdvReac Type Severity Reaction Status Date / Time varenicline (From CHANTIX) Allergy Severe NIGHTMARES Verified 02/03/25 22:22 acetaminophen Allergy Unknown emesis Verified 02/03/25 22:22 (Tylenol-Codeine) barium sulfate Allergy Unknown nightmares Verified 02/03/25 22:22 codeine (Tylenol-Codeine) Allergy Unknown emesis Verified 02/03/25 22:22 pt states no food allergies Allergy Unknown nka Uncoded 02/03/25 22:22 From Tylenol-Codeine #2 AdvReac Intermediate NAUSEA Uncoded 02/03/25 22:22 Review of Systems Review of Systems: Constitutional : No Weight loss, No Fever, No Chills, No Night Sweats, No Fatigue, No Malaise ENT/Mouth : No Hearing loss, No Ear Pain, No Nasal Congestion, No Sinus Pain, No Hoarseness, No sore throat, No Rhinorrhea, No Swallowing Difficulty Eyes: No Eye Pain, No Swelling, No Redness, No Foreign Body, No Discharge, No Vision Changes Cardiovascular : No Chest Pain, No SOB, No Dyspnea on Exertion, No Orthopnea, No Edema, No Palpitations Respiratory : No Cough, No Sputum, No Wheezing, No Smoke Exposure, No Dyspnea Gastrointestinal : No Nausea, No Vomiting, No Diarrhea, No Constipation, No abdominal Pain, No Hematochezia, No Melena Genitourinary : no irregular bleeding, No Dysuria, No Urinary Frequency, No Hematuria, No Urinary Incontinence, No Urgency, No Flank Pain, No Urinary Flow Changes, No Hesitancy Musculoskeletal : No joint pain, No Myalgias, No Joint Swelling Skin : No Skin Lesions, No rash Neuro : No Weakness, No Numbness, No Paresthesias, complaining of 1 episode of loss of consciousness, numbness tingling throughout the body Psych : No Anxiety/Panic, No Depression, No SI/HI/AH/VH, No Social Issues, Heme/Lymph: No Bruising, No Bleeding,No Lymphadenopathy Endocrine : No Polyuria, No Polydipsia, No Temperature Intolerance [facility] Past Medical History Medical History Obesity (BMI 30-39.9) Hypercholesteremia GERD (gastroesophageal reflux disease) Hiatal hernia Pseudotumor cerebri Malabsorption due to intolerance, not elsewhere classified Hx of ectopic Surgical History History of repair of hiatal hernia Hx of section History of dilatation and curettage History of partial hysterectomy History of sleeve gastrectomy Hx of cholecystectomy Family History Family History Father Bone cancer History of hypothyroidism Diabetes mellitus Mother Diabetes mellitus Hyperuricemia, pulmonary hypertension, renal failure, and alkalosis syndrome Brother No problems noted. Daughter No problems noted. Daughter No problems noted. Son No problems noted. Son No problems noted. Social History Social History Household Members: Spouse, Family and Children Housing: House Do you presently have visiting nurse or other home services: No Alcohol intake: never Patient Tobacco Use Status: Never used Tobacco Smoked in Last 30 Days: No Use of substances other than those prescribed or required for medical reasons: No Advance Directives: No Advance Directives Information Provided: Yes Physical Exam Exam: Exam: Appearance: Alert. Oriented X3. No acute distress. Eyes: Pupils equal, round and reactive to light. ENT: Pharynx normal. Neck: Normal inspection. Neck supple. No lymph nodes noted. No crepitus CVS: Normal heart rate and rhythm. Pulses normal. Normal S1 and S2 Respiratory: No respiratory distress. Breath sounds normal. No Wheezing. No rales Abdomen: Soft and nontender. No rigidity. No distention. Skin: Skin warm and dry. Normal skin color. Normal skin turgor. Extremities: No lower extremity edema. No Lacerations. No Rash Neuro: Oriented X 3. No motor deficit. No sensory deficit. Moving all extremities. No slurred speech. CN 2 through 12 grossly intact Psych: calm, cooperative, normal affect Vital Signs: Vital Signs: Last Vital Signs Temp 97.6 F 02/04/25 02:20 Pulse 74 02/04/25 03:21 Resp 15 02/04/25 02:20 BP 130/97 H 02/04/25 03:21 Pulse Ox 97 02/04/25 02:20 O2 Del Method Room Air 02/04/25 02:20 BMI result Body Mass Index 26.1 Course Course Course Narrative: At this time, patient states that she feels better. Patient's labs did not show any significant acute abnormality. Patient overall feeling better. Discussed with the patient that ideally we should rechecked her orthostatic vitals since they were positive earlier today when she arrived to the hospital. Also, since we do not have a clear answer of what happened, we should at least get a D-dimer and if positive get a CT scan to rule out PE. Patient agreeable with plan. Patient admits that she has been under a lot of stress. However, nothing new. Patient has been racing 2 young children. Both are her grandchildren. Patient states that she is still struggling with the of her daughter, who overdose with fentanyl 3 years ago. Medications Administered Discontinued Medications Generic Name Dose Route Start Last Admin Trade Name Freq PRN Reason Stop Dose Admin Cefuroxime Axetil 250 mg 02/04/25 03:15 02/04/25 03:29 Cefuroxime Axetil 250 Mg Tablet PO 02/04/25 03:16 250 mg ONCE ONE Administration Medical Decision Making Medical Decision Making [facility] Narrative: My interpretation of EKG: Normal sinus rhythm, heart rate 70, no ST segment depression or elevation, no T-wave inversion, QTC 419 First set of orthostatic vitals were positive 2nd set of orthostatic vitals were negative. Patient's D-dimer is negative I discussed that given the patient's recurrent symptoms, ideally we should keep her under observation. Patient states that she needs to get home to take care of her 2 grandkids. Patient states that she has an appointment pending with Dr. Root her neurologist within the next few days. Patient is requesting to be discharged home. Patient asked to return to emergency room if she has any new or recurrent symptoms, patient agrees with plan. At this time of discharge, patient is alert and oriented x3, asymptomatic, vitals stable, blood pressure 130/97, heart rate 74, respirations 15, oxygen saturation 97% on room air Earlier today, 1st set of vitals were positive, it is possible the patient may have had an orthostatic hypotension episode leading to syncope Differential Diagnosis Differential Diagnoses: The differential diagnosis associated with the presentation includes (Seizure, pseudo-seizure, pulmonary embolism) Admission/Observation Consideration of admission/observation: Escalation of care including admission/observation considered (Observation was offered and recommended, patient respectfully declined) Lab Data MDM Lab Attestation statement: I reviewed the patient's lab results. 02/03/25 22:48 02/03/25 22:48 Labs: Lab Results 02/03/25 02/04/25 Range/Units 22:48 03:32 WBC 8.8 (4.8-10.8) X10*3/uL RBC 4.43 (4.20-5.50) X10*6/uL Hgb 13.4 (12.0-16.0) g/dl Hct 39.3 (37.0-47.0) % MCV 88.7 (80.0-98.0) fL MCH 30.2 (27.0-33.0) pg MCHC 34.1 (31.0-35.0) g/dl RDW 14.1 (11.0-16.0) % Plt Count 275 (160-400) X10*3/uL MPV 10.5 (9.4-12.3) fL Absolute Nucleated RBC 0.000 (0.0-0.012) X10*3/uL Nucleated RBC % (auto) 0.0 (0.0-0.2) /100WBC D-Dimer High Sensitivty < 150 NG/ML Sodium 143 (135-145) mmol/L Potassium 3.5 (3.3-5.1) mmol/L Chloride 105 (96-108) mmol/L Carbon Dioxide 26 (22-29) mmol/L Anion Gap 16 (12-20) BUN 6 L (9-16) mg/dL Creatinine 0.89 (0.5-1.4) mg/dL Estim Creat Clear Calc 66.5 Estimated GFR > 60 Random Glucose 101 (60-115) mg/dL Lactic Acid 1.1 (0.5-2.0) mmol/L Calcium 9.0 (8.4-10.2) mg/dL Magnesium 2.2 (1.6-2.6) mg/dL Total Bilirubin 0.2 (0.0-1.0) mg/dL AST 25 (5-31) U/L ALT 27 (0-31) U/L Alkaline Phosphatase 74 (39-117) U/L Total Creatine Kinase 81 (26-140) U/L Troponin I High Sens < 2.7 (<3.5-17.0) ng/L Total Protein 7.2 (6.5-8.0) g/dL Albumin 4.5 (3.5-5.0) g/dL Urine Color Yellow Urine Appearance Clear Urine pH 5.5 (5.0-9.0) Ur Specific [place] <= 1.005 (1.005-1.025) Urine Protein Negative (Neg-Trace) mg/dL Urine Glucose (UA) Negative (Negative) mg/dL Urine Ketones Negative (Negative) mg/dL Urine Blood Negative (Negative) Urine Nitrite Negative (Negative) Ur Leukocyte Esterase Moderate (2+) H (Negative) Urine RBC 0-2 (0-2) /HPF Urine WBC 21-50 H (0-5) /HPF Ur Squamous Epith Cells 0-2 (0-2) /HPF Urine Bacteria 1+ (None Seen) Hyaline Casts 3-5 (0-2) /LPF Urine Opiates Screen Not Detected (Not Detect) Ur Buprenorphine Scrn Not Detected (Not Detect) ng/mL Ur Oxycodone Screen Not Detected (Not Detect) ng/mL Urine Methadone Screen Not Detected (Not Detect) ng/mL Urine Fentanyl Screen Not Detected (Not Detect) Ur Barbiturates Screen Not Detected (Not Detect) Ur Phencyclidine Scrn Not Detected (Not Detect) Ur Amphetamines Screen Not Detected (Not Detect) U Benzodiazepines Scrn Not Detected (Not Detect) Urine Cocaine Screen Not Detected (Not Detect) U Marijuana (THC) Screen POSITIVE H (Not Detect) Ethyl Alcohol < 10 mg/dL Critical Care Time Critical Care Time Critical Care Time: Yes Total Critical Care Time: 40 Attestation: I have personally provided critical care time. Time includes review of lab data, radiology results, discussion with consultants, and monitoring for potential decompensation. Intervention performed as documented. Discharge Plan Discharge Clinical Impression: Orthostatic hypotension, Syncope Patient Disposition: Home, Self-Care Instructions: Hypotension (ED), Syncope (ED) Additional Instructions: Earlier today, when we took your blood pressure lying down than sitting and then standing, your blood pressure dropped considerably. This may cause you to feel lightheaded and even pass out. The 2nd time that we took your blood pressure the same way, your blood pressure improved. Whenever you stand up, please make sure that you do so slowly before starting to walk. Please follow-up with your primary care physician tomorrow. If you have any worsening or new symptoms, please return to the emergency room or call 911 Prescriptions: No Action spironolactone 50 mg tablet 50 mg PO DAILY PRN (Reason: Edema) Qty: 90 1RF Linzess 290 mcg capsule 290 mcg PO DAILY PRN (Reason: Constipation) Qty: 90 0RF pravastatin 40 mg tablet 40 mg PO BEDTIME Qty: 90 1RF omeprazole 40 mg capsule,delayed release(DR/EC) 40 mg PO DAILY Qty: 90 1RF gabapentin 100 mg Capsule 100 mg PO TID PRN (Reason: Pain, Moderate(Pain Scale 4-6)) Qty: 15 0RF topiramate 50 mg tablet 50 mg PO BEDTIME Multivitamin Women 50 Plus 8 mg iron-400 mcg-300 mcg tablet 1 tab PO DAILY cyclobenzaprine 10 mg tablet 10 mg PO TID PRN (Reason: Muscle Spasm) trazodone 100 mg tablet 100 mg PO BEDTIME Print Language: Palestinian
[2025-02-04 03:22] LABS: Troponin-I High Sensitivity < 2.7 ng/L (<3.5-17.0)
[2025-02-04 03:49] LABS: D Dimer High Sensitivity < 150 NG/ML
[2025-02-04 04:55] VITALS: BP 130/97; PULSE 74; RESP 16; TEMP -17.7; TEMP 0
== END 2025-02-04 04:56 | disposition home or self-care (01) ==
PROVIDERS: Emergency Provider Emergency Medicine
DX: I95.1 Orthostatic hypotension (principal); R94.31 Abnormal electrocardiogram [ECG] [EKG]; Z51.81 Encounter for therapeutic drug level monitoring; Z79.899 Other long term (current) drug therapy
CPT/HCPCS: 36415; 80053; 80307; 81001; 81003; 82550; 83605; 83735; 84484; 85027; 85379; 87086; 87088; 87186; 93005; 99283; 99285

== ENCOUNTER → 2025-02-03 22:41 | Outpatient (BNV) | payer OTHER, SELFPAY | PROVIDERS: Emergency Provider Emergency Medicine; Visit Provider Internal Medicine Cardiovascular Disease | DX: R94.31 Abnormal electrocardiogram [ECG] [EKG] (principal); R55 Syncope and collapse | CPT/HCPCS: 93010 ==

== ENCOUNTER 2025-02-22 13:26 | Outpatient (AMB) | payer OTHER, SELFPAY ==
--- NOTE | 2025-02-22 13:54 | A.OFFPC_ITS ---
Vital Signs 02/22/25 13:55 Height 5 ft 3.19 in Weight 194 lb BMI 34.2 BP 109/63 Respiration 16 Pulse 84 Pulse Source Pulse Oximeter Temp 97.8 F Temp Source Temporal Artery Scan Pulse Oximetry (%) 96 Oxygen Delivery Method Room Air Intake Visit Reasons: Benjie monk/ Dr. Sheikh Orthopaedic Doctor Required: No Accompanied by: Self / Same As Patient Allergies varenicline (From CHANTIX) Allergy (Severe, Verified 02/22/25 14:14) NIGHTMARES acetaminophen (Tylenol-Codeine) Allergy (Unknown, Verified 02/22/25 14:14) emesis barium sulfate Allergy (Unknown, Verified 02/22/25 14:14) nightmares codeine (Tylenol-Codeine) Allergy (Unknown, Verified 02/22/25 14:14) emesis pt states no food allergies Allergy (Unknown, Uncoded 02/22/25 14:14) nka From Tylenol-Codeine #2 Adverse Reaction (Intermediate, Uncoded 02/22/25 14:14) NAUSEA Medication List - Last Reconciled 02/22/25 by Lori Pineda PA-C cyclobenzaprine 10 mg PO TID PRN gabapentin 100 mg PO TID PRN linaclotide (Linzess) 290 mcg PO DAILY PRN lisinopril 10 mg PO DAILY niiarwdy-iqf-raku-FA-vit K-lut 8 mg iron-400 mcg-50 mcg (Multivitamin Women 50 Plus) 1 tab PO DAILY omeprazole 40 mg PO DAILY pravastatin 40 mg PO BEDTIME spironolactone 50 mg PO DAILY PRN topiramate 50 mg PO BEDTIME PRN trazodone 200 mg PO BEDTIME Tobacco use date assessed: 02/22/25 Dental Screening Dental Screen Date: 02/22/25 Did you have a dental visit in the last 12 months?: Yes Did you have a dental problem in the last 6 months where you did not have access to dental care?: No Was dental information given to patient?: Patient has dentist (patient has dentures) HPI Benjie monk/ Dr. Sheikh HPI Details The patient is a 59-year-old female presenting with syncope and insomnia. The patient reports experiencing episodes of syncope, with the first incident occurring two to three years ago, resulting in hospitalization. She recently experienced another episode without any preceding symptoms such as dizziness or chest pain. Extensive neurological evaluations, including EEG and MRI, have been conducted, revealing nonspecific findings such as T2 hyperintense foci in the brain, suggestive of chronic microvascular ischemic disease or demyelinating disease. The patient has been experiencing insomnia for which she has been taking trazodone 200 mg nightly, although it has not been effective. She has been on this medication for 10 to 15 years, and there is consideration for either increasing the dose or switching to a different medication. The patient also reports a burning sensation during urination, suggestive of a urinary tract infection, which has persisted despite previous treatment. She has not had a physical examination this year, and comprehensive blood work is planned to rule out diabetes and thyroid dysfunction as potential causes of her symptoms. Additionally, the patient has a history of cervical spine degenerative changes and a lesion in the right parotid gland, which was evaluated with an ultrasound showing a benign lymph node. Preventative care measures discussed include a colon cancer screening with Cologuard and a bone density scan for osteoporosis. [facility] Medical History (Updated 02/23/25 @ 09:31 by Lori Pineda PA-C) Preventative health care Hemorrhoids Recurrent urinary tract infection Lesion of parotid gland Degenerative arthritis of cervical spine Demyelinating disease Ischemic vascular disease Insomnia Dysuria Obesity (BMI 30-39.9) Hypercholesteremia GERD (gastroesophageal reflux disease) Hiatal hernia Pseudotumor cerebri Malabsorption due to intolerance, not elsewhere classified Hx of ectopic Surgical History History of repair of hiatal hernia Hx of section History of dilatation and curettage History of partial hysterectomy History of sleeve gastrectomy Hx of cholecystectomy Family History Father Bone cancer History of hypothyroidism Diabetes mellitus Mother Diabetes mellitus Hyperuricemia, pulmonary hypertension, renal failure, and alkalosis syndrome Brother No problems noted. Daughter No problems noted. Daughter No problems noted. Son No problems noted. Son No problems noted. Social History Household Members: Spouse, Family and Children Housing: House Do you presently have visiting nurse or other home services: No Alcohol intake: current Alcohol intake frequency: does not drink Patient Tobacco Use Status: Former Tobacco user service: No Current occupational status: unemployed Cognitive needs: No Hearing needs: No Vision needs: Yes (rx glasses) Questionnaire PHQ-9 Over the last 2 weeks, how often have you been bothered by any of the following problems? 1. Little interest or pleasure in doing things: not at all 2. Feeling down, depressed, or hopeless: not at all 3. Trouble falling or staying asleep, or sleeping too much: not at all 4. Feeling tired or having little energy: not at all 5. Poor appetite or overeating: not at all 6. Feeling bad about yourself - or that you are a failure or have let yourself or your family down: not at all 7. Trouble concentrating on things, such as reading the newspaper or watching television: not at all 8. Moving or speaking so slowly that other people could have noticed. Or the opposite - being so fidgety or restless that you have been moving around a lot more than usual: not at all 9. Thoughts that you would be better off or of hurting yourself in some way: not at all Total score: 0 Depression Screening Interpretation: Negative Depression Screening Done: Yes 34215 - PHQ-9 Billing: Yes Source: Developed by Drs. Gato Davis, Ines Hart, Michael Jay and colleagues, with an educational jamie from [employer]. Thrive Questionnaire Date Thrive assessed: 02/22/25 I am a: Patient What is your living situation today?: I have a steady place to live Within the past 12 months, did the food you bought not last and you didn't have the money to get more?: Never true Within the past 12 months, did you worry whether your food would run out before you got money to buy more?: Never true Do you have trouble paying for medicines?: No Do you have trouble getting transportation to medical appointments?: No Do you have trouble paying your heating and electricity bill?: No Do you have trouble taking care of your child, family member or friend?: No Do you have trouble with day-to-day activities such as bathing, preparing meals, shopping, managing finances, etc.?: No Are you currently unemployed and looking for a job?: No Are you interested in more education?: No Please select the resources that you would like help with: None THRIVE Score: 0 AUDIT C Alcohol Use Questionnaire (AUDIT-C) 1. How often do you have a drink containing alcohol?: Never 3. How often do you have six or more drinks on one occasion?: Never Total Score: 0 Score Reviewed/Action Taken: No MASON-7 AMB Questionnaire MASON-7 Date MASON - 7 assessed: 02/22/25 Feeling nervous, anxious, or on edge: 0 = Not at all Not being able to stop or control worryin = Not at all Worrying too much about different things: 0 = Not at all Trouble relaxin = Not at all Being so restless that it is hard to sit still: 0 = Not at all Becoming easily annoyed or irritable: 0 = Not at all Feeling afraid as if something awful might happen: 0 = Not at all Total MASON-7 score (0-4 normal; 5-9 mild; 10-14 moderate; 15-21 severe): 0 Source: Developed by Drs. Gato Davis, Ines Hart, Michael Jay and colleagues, with an educational jamie from [employer]. MASON-7 Assessment Billing MASON-7 Assessment Tool: MASON-7 Assessment 89449 Review of Systems Const Details: - Neurological: Reports numbness and tingling sensation throughout the body, denies focal weakness - Cardiovascular: Denies chest pain, dizziness, or palpitations - Genitourinary: Reports burning sensation during urination - Sleep: Reports insomnia despite medication All systems reviewed & are unremarkable except as noted in HPI and below Physical exam (Primary Care) Vital Signs: Last Vital Signs Temp 97.8 F 02/22/25 13:55 Pulse 84 02/22/25 13:55 Resp 16 02/22/25 13:55 BP 109/63 02/22/25 13:55 Pulse Ox 96 02/22/25 13:55 Oxygen Delivery Method Room Air 02/22/25 13:55 Care Plan Goal for BP management: <140/90 at Goal BMI result Body Mass Index 34.2 BMI Assessment/Plan discussion: High BMI High, discussed plan: lifestyle, weight reduction, dietary, physical activity, alcohol moderation and other Tobacco/Smoking Status: Tobacco use Status Tobacco use date assessed 02/22/25 02/22/25 14:03 Patient Tobacco Use Status Former Tobacco user 02/22/25 14:03 PHQ-9: PHQ-9 Score PHQ-9: Total score 0 02/22/25 14:15 Depression Screening Interpretation: Negative Thrive Assessment: Date of Thrive Assessment Date Thrive assessed 02/22/25 02/22/25 14:03 Const Other: Appearance: Alert. Oriented X3. No acute distress. Head: Normal external exam. Normocephalic. Atraumatic. Eyes: Pupils are equal, round, and reactive to light. Extraocular movements intact. Conjunctiva and sclera normal. Eyelids normal. Reports of occasional blurry vision. Ears: External auditory canal normal. Tympanic membranes normal. Throat: Pharynx normal. Uvula midline. Moist mucous membranes. Neck: Normal inspection. Neck supple. Full range of motion. No adenopathy. Thyroid Normal. No meningeal signs. No neck mass noted. Cardiovascular: Normal heart rate and rhythm. Heart sound normal. No murmurs noted. Pulses normal throughout. Respiratory: No respiratory distress. Painless inspiration. Breath sounds normal. No wheezes/rales/rhonchi noted. Chest nontender. No accessory muscle usage noted or decreased air movement noted. Abdomen: Soft and nontender. No distention noted. No organomegaly noted. Back: No costovertebral angle tenderness. Full range of motion noted. Skin: Skin warm and dry. Normal skin color. Normal skin turgor. No rashes/lesions/lacerations noted. Extremities: No lower extremity edema. Extremities exhibit normal range of motion. Neuro: Oriented X 3. No motor deficit. No sensory deficit. Reflexes normal. Reports of numbness and tingling sensation from head to toe. Results Reviewed Results Reviewed: - Labs: CBC normal, D-dimer negative, kidney function normal - Imaging: Brain MRI showed T2 hyperintense foci, cervical spine MRI showed degenerative changes, ultrasound of right parotid gland showed benign lymph node Coding Level of Care Code New Pt Level 4 (91791) Complex EM visit Add On G2211 Diagnoses Syncope and collapse R55 Ischemic vascular disease I99.8 Demyelinating disease G37.9 Degenerative arthritis of cervical spine M47.812 Lesion of parotid gland K11.9 Insomnia G47.00 Recurrent urinary tract infection N39.0 Hemorrhoids K64.9 Preventative health care Z00.00 Additional Codes MASON-7 Assessment Billing - MASON-7 Assessment Tool: MASON-7 Assessment 28454 ([id number]) PHQ-9 - 89750 - PHQ-9 Billing: Yes ([id number]) Time Spent (min) 50 Assessment & Plan Assessment & Plan (1) Syncope and collapse: Code(s): R55 - Syncope and collapse Category: Medical Plan: The patient has experienced episodes of syncope, with extensive neurological evaluations conducted, including EEG and MRI, which revealed nonspecific findings. Further investigation into potential causes, such as chronic microvascular ischemic disease or demyelinating disease, is recommended. (2) Ischemic vascular disease: Code(s): I99.8 - Other disorder of circulatory system Category: Medical Plan: The MRI findings suggest chronic microvascular ischemic disease, which may contribute to the patient's symptoms. Further evaluation and management by a neurologist are advised to determine the significance of these findings. (3) Demyelinating disease: Code(s): G37.9 - Demyelinating disease of central nervous system, unspecified Category: Medical Plan: The possibility of a demyelinating disease, such as multiple sclerosis, has been considered due to the MRI findings. A follow-up with neurology is recommended to explore this potential diagnosis further. (4) Degenerative arthritis of cervical spine: Code(s): M47.812 - Spondylosis without myelopathy or radiculopathy, cervical region Category: Medical Plan: The patient has degenerative changes in the cervical spine, as noted on imaging. Management may include physical therapy or other interventions as deemed appropriate by the treating physician. (5) Lesion of parotid gland: Comment: Right-sided evaluated ultrasound showing a benign lymph node Code(s): K11.9 - Disease of salivary gland, unspecified Category: Medical Plan: The lesion in the right parotid gland was evaluated with an ultrasound, showing a benign lymph node. No further immediate intervention is required unless symptoms develop. (6) Insomnia: Code(s): G47.00 - Insomnia, unspecified Category: Medical Plan: The patient has been experiencing insomnia despite taking trazodone 200 mg nightly. Consideration for adjusting the medication regimen or exploring alternative treatments is advised. (7) Recurrent urinary tract infection: Code(s): N39.0 - Urinary tract infection, site not specified Category: Medical Plan: The patient reports symptoms suggestive of a urinary tract infection, including burning during urination. A urine analysis is recommended to confirm the diagnosis and guide antibiotic therapy. (8) Hemorrhoids: Code(s): K64.9 - Unspecified hemorrhoids Category: Medical Plan: The patient reports hemorrhoids and is currently using xqyo-ljr-grcolsc treatments. Prescription options, including suppositories, may be considered for symptom relief. (9) Preventative health care: Code(s): Z00.00 - Encounter for general adult medical examination without abnormal findings Category: Medical Plan: The patient is due for colon cancer screening and has opted for the Cologuard test. The test will be sent to her home for completion. Plan Plan Patient was informed and verbally consented to the use of an ambient scribe for clinic note documentation during this visit. 1. Syncope The patient has experienced episodes of syncope, with extensive neurological evaluations conducted, including EEG and MRI, which revealed nonspecific findings. Further investigation into potential causes, such as chronic microvascular ischemic disease or demyelinating disease, is recommended. 2. Chronic Microvascular Ischemic Disease The MRI findings suggest chronic microvascular ischemic disease, which may contribute to the patient's symptoms. Further evaluation and management by a neurologist are advised to determine the significance of these findings. 3. Demyelinating Disease The possibility of a demyelinating disease, such as multiple sclerosis, has been considered due to the MRI findings. A follow-up with neurology is recommended to explore this potential diagnosis further. 4. Cervical Spine Degenerative Changes The patient has degenerative changes in the cervical spine, as noted on imaging. Management may include physical therapy or other interventions as deemed appropriate by the treating physician. 5. Right Parotid Gland Lesion The lesion in the right parotid gland was evaluated with an ultrasound, showing a benign lymph node. No further immediate intervention is required unless symptoms develop. 6. Insomnia The patient has been experiencing insomnia despite taking trazodone 200 mg nightly. Consideration for adjusting the medication regimen or exploring alternative treatments is advised. 7. Urinary Tract Infection The patient reports symptoms suggestive of a urinary tract infection, including burning during urination. A urine analysis is recommended to confirm the diagnosis and guide antibiotic therapy. 8. Hemorrhoids The patient reports hemorrhoids and is currently using [id number]-cvlvdhk treatments. Prescription options, including suppositories, may be considered for symptom relief. 9. Preventative Care: Colon Cancer Screening With Cologuard The patient is due for colon cancer screening and has opted for the Cologuard test. The test will be sent to her home for completion. During the visit, we discussed the patient's ongoing issues with syncope and insomnia. I explained the potential causes of her symptoms, including chronic microvascular ischemic disease and demyelinating disease, and recommended further evaluation by a neurologist. We also reviewed her current medication regimen for insomnia and considered alternative treatments. For her urinary symptoms, I suggested a urine analysis to confirm a urinary tract infection and determine appropriate antibiotic therapy. Preventative care measures, including colon cancer screening with Cologuard and a bone density scan, were also discussed. Orders: Orders Hemoglobin A1c 02/22/25 Lori Pineda PA-C Z00.00 - Encounter for general adult medical examination without abnormal findings Lipid Panel 02/22/25 Lori Pineda PA-C Z00.00 - Encounter for general adult medical examination without abnormal findings Liver Panel 02/22/25 Lori Pineda PA-C Z00.00 - Encounter for general adult medical examination without abnormal findings Vitamin B12 and Folate 02/22/25 Lori Pineda PA-C Z00.00 - Encounter for general adult medical examination without abnormal findings C Reactive Protein 02/22/25 Lori Pineda PA-C Z00.00 - Encounter for general adult medical examination without abnormal findings Complete Blood Count Auto Diff 02/22/25 Lori Pineda PA-C Z00.00 - Encounter for general adult medical examination without abnormal findings Comprehensive [place]. Panel Fast 02/22/25 Lori Pineda PA-C Z00.00 - Encounter for general adult medical examination without abnormal findings Magnesium 02/22/25 Lori Pineda PA-C Z00.00 - Encounter for general adult medical examination without abnormal findings TSH reflex Free T4 02/22/25 Lori Pineda PA-C Z00.00 - Encounter for general adult medical examination without abnormal findings Vitamin D 25-OH Total 02/22/25 Lori Pineda PA-C Z00.00 - Encounter for general adult medical examination without abnormal findings XR DEXA axial skeleton 02/22/25 Lori Pineda PA-C M81.0 - Age-related osteoporosis without current pathological fracture UA CC w/rflx Micro + Cult 02/22/25 Lori Pineda PA-C R30.0 - Dysuria Referrals Psychiatry Outpatient Consultation Service Lori Pineda PA-C G47.00 - Insomnia, unspecified Cologuard Test Lori Pineda PA-C Z12.11 - Encounter for screening for malignant neoplasm of colon, Z12.12 - Encounter for screening for malignant neoplasm of rectum Medications: New citalopram 10 mg PO DAILY 90 tabs 3RF Lori Pineda PA-C lidocaine 5% ([employer]) do not exceed 6 doses per 24 hrs 1 appl topical QID PRN 30 grams 3RF pain Lori Pineda PA-C Changed From trazodone 100 mg PO BEDTIME 90 tabs 1RF Insomnia To trazodone 200 mg PO BEDTIME Insomnia Avelino Russell MD Patient Instructions: - Follow up with a neurologist for further evaluation of syncope and potential demyelinating disease. - Consider adjusting insomnia medication or exploring alternative treatments. - Complete urine analysis to confirm urinary tract infection and guide treatment. - Complete colon cancer screening with Cologuard at home. - Schedule a bone density scan for osteoporosis screening.
[2025-02-22 13:55] VITALS: BP 109/63; PULSE 84; RESP 16; TEMP 36.6; O2SAT 96; BMI 34.2
== END 2025-02-22 14:41 | disposition home or self-care (01) ==
LOC: HO.HMCSH 13:26
PROVIDERS: PCP Physician Assistant Medical; Visit Provider Physician Assistant Medical
DX: R55 Syncope and collapse (principal); I99.8 Other disorder of circulatory system; G37.9 Demyelinating disease of central nervous system, unspecified; M47.812 Spondylosis without myelopathy or radiculopathy, cervical region; K11.9 Disease of salivary gland, unspecified; G47.00 Insomnia, unspecified; N39.0 Urinary tract infection, site not specified; K64.9 Unspecified hemorrhoids; Z00.00 Encounter for general adult medical examination without abnormal findings

== ENCOUNTER → 2025-02-22 13:26 | Outpatient (BNVA) | payer OTHER, SELFPAY | PROVIDERS: PCP Physician Assistant Medical; Visit Provider Physician Assistant Medical | DX: Z00.00 Encounter for general adult medical examination without abnormal findings (principal); G47.00 Insomnia, unspecified; R55 Syncope and collapse; I99.8 Other disorder of circulatory system; G37.9 Demyelinating disease of central nervous system, unspecified; M47.812 Spondylosis without myelopathy or radiculopathy, cervical region; K11.9 Disease of salivary gland, unspecified; N39.0 Urinary tract infection, site not specified; K64.9 Unspecified hemorrhoids; Z79.899 Other long term (current) drug therapy | CPT/HCPCS: 96127; 99202 ==

== ENCOUNTER 2025-02-23 12:48 | Outpatient (REF) | payer OTHER, SELFPAY ==
[2025-02-23 16:17] LABS: MANUAL DIFF FLAG NO
[2025-02-23 16:31] LABS: Hemoglobin A1C 128.5390 umol/L; Total Hemoglobin (HGBA1C) 3397.2818 umol/L
[2025-02-23 16:33] LABS: Hematocrit 39.0 % (37.0-47.0); Hemoglobin 13.2 g/dl (12.0-16.0); Imm Gran Abs Auto 0.01 X10*3/uL (0.00-0.03); Imm Gran Pct Auto 0.2 % (0.0-0.4); Lymphocytes Absolute Auto 2.7 X10*3/uL (1.2-4.9); Mean Corpuscular HGB Conc 33.8 g/dl (31.0-35.0); Mean Corpuscular Hemoglobin 30.0 pg (27.0-33.0); Mean Corpuscular Volume 88.6 fL (80.0-98.0); NRBC Abs Auto 0.000 X10*3/uL (0.0-0.012); NRBC Pct Auto 0.0 /100WBC (0.0-0.2); Platelet Count 289 X10*3/uL (160-400); Red Blood Count 4.40 X10*6/uL (4.20-5.50); White Blood Count 6.4 X10*3/uL (4.8-10.8)
[2025-02-23 16:36] LABS: Appearance Urine Clear; Glucose Urine UA Negative (Negative); PH 7.0 (5.0-9.0); Specific Gravity - Urine <= 1.005 (1.005-1.025); UMIC TRIGGER UACC YES
[2025-02-23 16:43] LABS: UACC Culture Trigger YES
[2025-02-23 16:44] LABS: Alanine Aminotransferase 18 U/L (0-31); Albumin Level 4.4 g/dL (3.5-5.0); Alkaline Phosphatase 68 U/L (39-117); Anion Gap 13 (12-20); Aspartate Amino Transferase 23 U/L (5-31); Blood Urea Nitrogen 7 mg/dL (9-16); Calcium 9.1 mg/dL (8.4-10.2); Carbon Dioxide 29 mmol/L (22-29); Chloride 103 mmol/L (96-108); Cholesterol 170 mg/dL (<200); Estimated Glomerular Filt Rate > 60; HDL Cholesterol 44 mg/dL (>40); Magnesium 2.3 mg/dL (1.6-2.6); Potassium 4.0 mmol/L (3.3-5.1); Sodium 141 mmol/L (135-145); Total Protein 7.0 g/dL (6.5-8.0); Triglycerides 119 mg/dL (<150)
[2025-02-23 17:08] LABS: Folate 13.8 ng/mL (> or = 4.0); Vitamin B12 462 pg/mL (200-900)
== END 2025-02-23 12:49 | disposition home or self-care (01) ==
LOC: HO.HMGCLDS 12:48
PROVIDERS: PCP Physician Assistant Medical; Visit Provider Physician Assistant Medical
DX: Z00.00 Encounter for general adult medical examination without abnormal findings (principal)
CPT/HCPCS: 36415; 80053; 80061; 80076; 81001; 82248; 82306; 82607; 82746; 83036; 83735; 84443; 85025; 86140; 87086; 87088; 87186

== ENCOUNTER 2025-03-22 12:51 | Outpatient (AMB) | payer OTHER, SELFPAY ==
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
== END 2025-03-22 13:26 | disposition home or self-care (01) ==
LOC: HO.HSM 12:52
PROVIDERS: PCP Internal Medicine; Referring Provider Internal Medicine; Visit Provider Registered Nurse
DX: G62.9 Polyneuropathy, unspecified (principal); G44.209 Tension-type headache, unspecified, not intractable; G95.9 Disease of spinal cord, unspecified; G47.00 Insomnia, unspecified
CPT/HCPCS: 99214

== ENCOUNTER → 2025-03-22 12:51 | Outpatient (BNVA) | payer OTHER, SELFPAY | PROVIDERS: PCP Internal Medicine; Referring Provider Internal Medicine; Visit Provider Registered Nurse | DX: G44.209 Tension-type headache, unspecified, not intractable (principal); G62.9 Polyneuropathy, unspecified; G95.9 Disease of spinal cord, unspecified; G47.00 Insomnia, unspecified; Z79.899 Other long term (current) drug therapy | CPT/HCPCS: 99212 ==

== ENCOUNTER 2025-03-31 15:18 | Outpatient (AMB) | payer OTHER, SELFPAY ==
--- NOTE | 2025-03-31 15:50 | MHC.PC.OV ---
Vital Signs 03/31/25 15:55 Weight 194 lb BP 119/74 Blood Pressure Location Rt brachial Position Sitting Respiration 16 Pulse 80 Pulse Source Pulse Oximeter Temp 97.1 F Temp Source Temporal Artery Scan Pulse Oximetry (%) 99 Oxygen Delivery Method Room Air Intake Visit Reasons: Urinary tract infection Intake Note: ?thrush in mouth. still having dysuria and frequency Accompanied by: Self / Same As Patient Allergies varenicline (From CHANTIX) Allergy (Severe, Verified 03/31/25 17:06) NIGHTMARES acetaminophen (Tylenol-Codeine) Allergy (Unknown, Verified 03/31/25 17:06) emesis barium sulfate Allergy (Unknown, Verified 03/31/25 17:06) nightmares Medication List - Last Reconciled 03/31/25 by Lori Pineda PA-C cefdinir 300 mg PO BID 10 days citalopram 10 mg PO DAILY cyclobenzaprine 10 mg PO TID PRN gabapentin 600 mg PO TID 30 days lidocaine 5% (RectiCare) 1 appl topical QID PRN linaclotide (Linzess) 290 mcg PO DAILY PRN lisinopril 10 mg PO DAILY qecvxltl-hlc-vfiy-FA-vit K-lut 8 mg iron-400 mcg-50 mcg (Multivitamin Women 50 Plus) 1 tab PO DAILY nystatin 400,000 units (4 mL) PO Q6H omeprazole 40 mg PO DAILY pravastatin 40 mg PO BEDTIME spironolactone 50 mg PO DAILY PRN zolpidem 10 mg PO BEDTIME PRN 30 days Tobacco use date assessed: 03/31/25 Dental Screening Dental Screen Date: 03/31/25 Did you have a dental visit in the last 12 months?: Yes Was dental information given to patient?: Patient has dentist HPI Urinary tract infection HPI Details The patient is a 59-year-old female presenting with urinary symptoms and concerns about oral thrush. The urinary symptoms began with a diagnosed urinary tract infection, for which she was prescribed Macrobid for seven days. The urine culture revealed Escherichia coli, which was susceptible to Macrobid, but the symptoms only partially resolved before returning. The patient reports that the infection did not fully resolve, prompting consideration of an alternative antibiotic, cefdinir. The patient also reports concerns about oral thrush, which was suspected by her daughter who works in the dental field. She has a history of oral yeast infections and uses inhalers, which may contribute to the condition. Nystatin Swish and Swallow was prescribed to manage the thrush. [facility] Medical History (Updated 03/31/25 @ 17:09 by Lori Pineda PA-C) Thrush of mouth and esophagus UTI (urinary tract infection) Colon cancer screening (~03/24/25) History of mammogram (~05/25/24) Preventative health care Hemorrhoids Recurrent urinary tract infection Lesion of parotid gland Degenerative arthritis of cervical spine Demyelinating disease Ischemic vascular disease Insomnia Dysuria Obesity (BMI 30-39.9) Hypercholesteremia GERD (gastroesophageal reflux disease) Hiatal hernia Pseudotumor cerebri Malabsorption due to intolerance, not elsewhere classified Hx of ectopic Surgical History History of repair of hiatal hernia Hx of section History of dilatation and curettage History of partial hysterectomy History of sleeve gastrectomy Hx of cholecystectomy Family History Father Bone cancer History of hypothyroidism Diabetes mellitus Mother Diabetes mellitus Hyperuricemia, pulmonary hypertension, renal failure, and alkalosis syndrome Brother No problems noted. Daughter No problems noted. Daughter No problems noted. Son No problems noted. Son No problems noted. Social History Household Members: Spouse, Family and Children Housing: House Do you presently have visiting nurse or other home services: No Alcohol intake: current Alcohol intake frequency: does not drink Patient Tobacco Use Status: Former Tobacco user service: No Current occupational status: unemployed Cognitive needs: No Hearing needs: No Vision needs: Yes (rx glasses) Questionnaire PHQ-9 Over the last 2 weeks, how often have you been bothered by any of the following problems? 1. Little interest or pleasure in doing things: not at all 2. Feeling down, depressed, or hopeless: not at all 3. Trouble falling or staying asleep, or sleeping too much: not at all 4. Feeling tired or having little energy: not at all 5. Poor appetite or overeating: not at all 6. Feeling bad about yourself - or that you are a failure or have let yourself or your family down: not at all 7. Trouble concentrating on things, such as reading the newspaper or watching television: not at all 8. Moving or speaking so slowly that other people could have noticed. Or the opposite - being so fidgety or restless that you have been moving around a lot more than usual: not at all 9. Thoughts that you would be better off or of hurting yourself in some way: not at all Total score: 0 Depression Screening Interpretation: Negative Depression Screening Done: Yes 78969 - PHQ-9 Billing: Yes Source: Developed by Drs. Gato Davis, Ines Hart, Michael Jay and colleagues, with an educational jamie from [employer]. Thrive Questionnaire Date Thrive assessed: 03/31/25 I am a: Patient What is your living situation today?: I have a steady place to live Within the past 12 months, did the food you bought not last and you didn't have the money to get more?: Never true Within the past 12 months, did you worry whether your food would run out before you got money to buy more?: Never true Do you have trouble paying for medicines?: No Do you have trouble getting transportation to medical appointments?: No Do you have trouble paying your heating and electricity bill?: No Do you have trouble taking care of your child, family member or friend?: No Do you have trouble with day-to-day activities such as bathing, preparing meals, shopping, managing finances, etc.?: No Are you currently unemployed and looking for a job?: No Are you interested in more education?: No Please select the resources that you would like help with: None THRIVE Score: 0 AUDIT C Alcohol Use Questionnaire (AUDIT-C) 1. How often do you have a drink containing alcohol?: Never 3. How often do you have six or more drinks on one occasion?: Never Total Score: 0 Score Reviewed/Action Taken: No MASON-7 AMB Questionnaire MASON-7 Date MASON - 7 assessed: 03/31/25 Feeling nervous, anxious, or on edge: 0 = Not at all Not being able to stop or control worryin = Not at all Worrying too much about different things: 0 = Not at all Trouble relaxin = Not at all Being so restless that it is hard to sit still: 0 = Not at all Becoming easily annoyed or irritable: 0 = Not at all Feeling afraid as if something awful might happen: 0 = Not at all Total MASON-7 score (0-4 normal; 5-9 mild; 10-14 moderate; 15-21 severe): 0 Source: Developed by Drs. Gato Davis, Ines Hart, Michael Jay and colleagues, with an educational jamie from [employer]. MASON-7 Assessment Billing MASON-7 Assessment Tool: MASON-7 Assessment 62113 Review of Systems Const Details: - Genitourinary: Reports urinary symptoms, partially resolved with initial antibiotic treatment. - Oral: Reports concerns of oral thrush, history of oral yeast infections. All systems reviewed & are unremarkable except as noted in HPI and below Physical exam (Primary Care) Vital Signs: Last Vital Signs Temp 97.1 F 03/31/25 15:55 Pulse 80 03/31/25 15:55 Resp 16 03/31/25 15:55 BP 119/74 03/31/25 15:55 Pulse Ox 99 03/31/25 15:55 Oxygen Delivery Method Room Air 03/31/25 15:55 Care Plan Goal for BP management: <140/90 at Goal BMI Assessment/Plan discussion: High BMI High, discussed plan: lifestyle, weight reduction, dietary, physical activity, alcohol moderation and other Tobacco/Smoking Status: Tobacco use Status Tobacco use date assessed 03/31/25 03/31/25 15:59 Patient Tobacco Use Status Former Tobacco user 03/31/25 15:59 PHQ-9: PHQ-9 Score PHQ-9: Total score 0 03/31/25 15:59 Depression Screening Interpretation: Negative Thrive Assessment: Date of Thrive Assessment Date Thrive assessed 03/31/25 03/31/25 15:59 Const Other: Appearance: Alert. Oriented X3. No acute distress. Head: Normal external exam. Normocephalic. Atraumatic. Eyes: Pupils are equal, round, and reactive to light. Extraocular movements intact. Conjunctiva and sclera normal. Eyelids normal. Ears: External auditory canal normal. Tympanic membranes normal. Throat: Pharynx normal. Uvula midline. Moist mucous membranes. Thrush is noted to the oropharynx. Neck: Normal inspection. Neck supple. Full range of motion. No adenopathy. Thyroid Normal. No meningeal signs. No neck mass noted. Cardiovascular: Normal heart rate and rhythm. Respiratory: No respiratory distress. Painless inspiration. Back:Full range of motion noted. Skin: Skin warm and dry. Normal skin color. Normal skin turgor. No rashes/lesions/lacerations noted. Extremities: Extremities exhibit normal range of motion. Office Procedures Flu Questionnaire Does the patient have a severe egg allergy?: No Does the patient have severe life threatening allergies?: No Does the patient have a fever or illness today?: No Has the patient ever had Guillain-[place] Syndrome?: No Has the patient ever had any past reaction to a flu shot?: No Immunizations Fluarix [id number] (PF) 45 mcg (15 mcg x 3)/0.5 mL IM syringe Performing Provider: Lori Pineda PA-C [facility] Administered by: Olga Warren CMA on 03/31/25 16:03 Dose Route Admin Location Dispensed Lot Number Expiration Date [facility] Foot Drill Operator 0.5 mL IM Right Deltoid 0.5 mL [id number] 03/31/25 [id number] TixAlert VIS Given Date VIS Provided VIS Publication Date 03/31/25 Single Vaccine 24 Eligibility Eligibility Date Funding Source Not [facility] Eligible 03/31/25 Private Results Reviewed Results Reviewed: - Labs: Past urine cultures positive for Escherichia coli, susceptible to Macrobid. Coding Level of Care Code Est Pt Level 4 (22691) Complex EM visit Add On G2211 Diagnoses UTI (urinary tract infection) N39.0 Thrush of mouth and esophagus B37.81; B37.0 Additional Codes MASON-7 Assessment Billing - MASON-7 Assessment Tool: MASON-7 Assessment 93513 ([id number]) PHQ-9 - 48437 - PHQ-9 Billing: Yes ([id number]) Assessment & Plan Assessment & Plan (1) UTI (urinary tract infection): Code(s): N39.0 - Urinary tract infection, site not specified Category: Medical Plan: The patient was initially treated with Macrobid for a urinary tract infection caused by Escherichia coli, which was susceptible to the antibiotic. However, the symptoms did not fully resolve, and an alternative antibiotic, cefdinir, was prescribed for further management. (2) Thrush of mouth and esophagus: Code(s): B37.81 - Candidal esophagitis; B37.0 - Candidal stomatitis Category: Medical Plan: The patient presented with concerns of oral thrush, suspected by her daughter. Nystatin Swish and Swallow was prescribed to address the condition, with advice to use probiotics to prevent recurrence. Plan Plan Patient was informed and verbally consented to the use of an ambient scribe for clinic note documentation during this visit. 1. Urinary Tract Infection The patient was initially treated with Macrobid for a urinary tract infection caused by Escherichia coli, which was susceptible to the antibiotic. However, the symptoms did not fully resolve, and an alternative antibiotic, cefdinir, was prescribed for further management. 2. Oral Candidiasis (Thrush) The patient presented with concerns of oral thrush, suspected by her daughter. Nystatin Swish and Swallow was prescribed to address the condition, with advice to use probiotics to prevent recurrence. During the visit, we discussed the persistence of urinary symptoms despite initial treatment with Macrobid, and the decision to switch to cefdinir for better management. We also addressed the patient's concerns about oral thrush, prescribing Nystatin Swish and Swallow, and recommended the use of probiotics to prevent recurrence. Orders: Orders Influenza [id number] Immunization Today Z23 - Encounter for immunization UA CC w/rflx Micro + Cult Today Z00.00 - Encounter for general adult medical examination without abnormal findings Medications: New cefdinir 300 mg PO BID 20 caps 0RF uti 10 days nystatin administer 1/2 of dose in each side of the mouth 400,000 units (4 mL) PO Q6H 480 mL 1RF Swish in mouth several minutes and then swallow Patient Instructions: - Take cefdinir 300 mg twice daily for 10 days. - Use Nystatin Swish and Swallow as prescribed. - Consider taking probiotics to prevent recurrence of thrush. - Follow up if symptoms persist or worsen.
[2025-03-31 15:55] VITALS: BP 119/74; PULSE 80; RESP 16; TEMP 36.2; O2SAT 99
== END 2025-03-31 16:16 | disposition home or self-care (01) ==
PROVIDERS: PCP Internal Medicine; Visit Provider Physician Assistant Medical
DX: N39.0 Urinary tract infection, site not specified (principal); B37.81 Candidal esophagitis; B37.0 Candidal stomatitis; Z23 Encounter for immunization

== ENCOUNTER 2025-03-31 15:18 | Outpatient (REF) | payer OTHER, SELFPAY ==
[2025-03-31 18:49] LABS: Appearance Urine Clear; Glucose Urine UA Negative (Negative); PH 6.0 (5.0-9.0); Specific Gravity - Urine <= 1.005 (1.005-1.025)
== END 2025-03-31 15:19 | disposition home or self-care (01) ==
LOC: HO.LNP 15:18
PROVIDERS: PCP Internal Medicine; Visit Provider Physician Assistant Medical
DX: Z00.00 Encounter for general adult medical examination without abnormal findings (principal); Z23 Encounter for immunization; N39.0 Urinary tract infection, site not specified; B37.81 Candidal esophagitis; B37.0 Candidal stomatitis; Z79.899 Other long term (current) drug therapy
CPT/HCPCS: 81003; 90471; 90656; 96127; 99212

== ENCOUNTER 2025-04-10 14:33 | Outpatient (AMB) | payer OTHER, SELFPAY ==
--- NOTE | 2025-04-10 14:38 | A.OFFPC_ITS ---
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: No Accompanied by: Self / Same As Patient Allergies varenicline (From CHANTIX) Allergy (Severe, Verified 04/10/25 14:39) NIGHTMARES acetaminophen (Tylenol-Codeine) Allergy (Unknown, Verified 04/10/25 14:39) emesis barium sulfate Allergy (Unknown, Verified 04/10/25 14:39) nightmares Tobacco use date assessed: 03/31/25 Dental Screening Dental Screen Date: 03/31/25 [facility] Medical History Thrush of mouth and esophagus UTI (urinary tract infection) Colon cancer screening (~03/24/25) History of mammogram (~05/25/24) Preventative health care Hemorrhoids Recurrent urinary tract infection Lesion of parotid gland Degenerative arthritis of cervical spine Demyelinating disease Ischemic vascular disease Insomnia Dysuria Obesity (BMI 30-39.9) Hypercholesteremia GERD (gastroesophageal reflux disease) Hiatal hernia Pseudotumor cerebri Malabsorption due to intolerance, not elsewhere classified Hx of ectopic Surgical History History of repair of hiatal hernia Hx of section History of dilatation and curettage History of partial hysterectomy History of sleeve gastrectomy Hx of cholecystectomy Family History Father Bone cancer History of hypothyroidism Diabetes mellitus Mother Diabetes mellitus Hyperuricemia, pulmonary hypertension, renal failure, and alkalosis syndrome Brother No problems noted. Daughter No problems noted. Daughter No problems noted. Son No problems noted. Son No problems noted. Social History Household Members: Spouse, Family and Children Housing: House Do you presently have visiting nurse or other home services: No Alcohol intake: current Alcohol intake frequency: does not drink Patient Tobacco Use Status: Former Tobacco user service: No Current occupational status: unemployed Cognitive needs: No Hearing needs: No Vision needs: Yes (rx glasses) Questionnaire PHQ-9 Over the last 2 weeks, how often have you been bothered by any of the following problems? 1. Little interest or pleasure in doing things: not at all 2. Feeling down, depressed, or hopeless: not at all 3. Trouble falling or staying asleep, or sleeping too much: not at all 4. Feeling tired or having little energy: not at all 5. Poor appetite or overeating: not at all 6. Feeling bad about yourself - or that you are a failure or have let yourself or your family down: not at all 7. Trouble concentrating on things, such as reading the newspaper or watching television: not at all 8. Moving or speaking so slowly that other people could have noticed. Or the opposite - being so fidgety or restless that you have been moving around a lot more than usual: not at all 9. Thoughts that you would be better off or of hurting yourself in some way: not at all Total score: 0 Depression Screening Interpretation: Negative Depression Screening Done: Yes 93455 - PHQ-9 Billing: Yes Source: Developed by Drs. Gato Davis, Ines Hart, Michael Jay and colleagues, with an educational jamie from [employer]. Thrive Questionnaire Date Thrive assessed: 03/31/25 I am a: Patient What is your living situation today?: I have a steady place to live Within the past 12 months, did the food you bought not last and you didn't have the money to get more?: Never true Within the past 12 months, did you worry whether your food would run out before you got money to buy more?: Never true Do you have trouble paying for medicines?: No Do you have trouble getting transportation to medical appointments?: No Do you have trouble paying your heating and electricity bill?: No Do you have trouble taking care of your child, family member or friend?: No Do you have trouble with day-to-day activities such as bathing, preparing meals, shopping, managing finances, etc.?: No Are you currently unemployed and looking for a job?: No Are you interested in more education?: No Please select the resources that you would like help with: None THRIVE Score: 0 AUDIT C Alcohol Use Questionnaire (AUDIT-C) 1. How often do you have a drink containing alcohol?: Never 3. How often do you have six or more drinks on one occasion?: Never Total Score: 0 Score Reviewed/Action Taken: No MASON-7 AMB Questionnaire MASON-7 Date MASON - 7 assessed: 03/31/25 Feeling nervous, anxious, or on edge: 0 = Not at all Not being able to stop or control worryin = Not at all Worrying too much about different things: 0 = Not at all Trouble relaxin = Not at all Being so restless that it is hard to sit still: 0 = Not at all Becoming easily annoyed or irritable: 0 = Not at all Feeling afraid as if something awful might happen: 0 = Not at all Total MASON-7 score (0-4 normal; 5-9 mild; 10-14 moderate; 15-21 severe): 0 Source: Developed by Drs. Gato Davis, Ines Hart, Michael Jay and colleagues, with an educational jamie from [employer]. MASON-7 Assessment Billing MASON-7 Assessment Tool: MASON-7 Assessment 12548 Physical exam (Primary Care) Vital Signs: Last Vital Signs Temp 98.3 F 04/10/25 14:39 Pulse 80 04/10/25 14:39 Resp 14 04/10/25 14:39 BP 132/82 04/10/25 14:39 Pulse Ox 99 04/10/25 14:39 Oxygen Delivery Method Room Air 04/10/25 14:39 BMI result Body Mass Index 33.3 Tobacco/Smoking Status: Tobacco use Status Tobacco use date assessed 03/31/25 04/10/25 14:40 Patient Tobacco Use Status Former Tobacco user 04/10/25 14:40 PHQ-9: PHQ-9 Score PHQ-9: Total score 0 04/10/25 15:05 Depression Screening Interpretation: Negative Thrive Assessment: Date of Thrive Assessment Date Thrive assessed 03/31/25 04/10/25 14:40 Office Procedures Flu Questionnaire Does the patient have a severe egg allergy?: No Does the patient have severe life threatening allergies?: No Does the patient have a fever or illness today?: No Has the patient ever had Guillain-Floriss[place] Syndrome?: No Has the patient ever had any past reaction to a flu shot?: No Immunizations Fluarix [id number] (PF) 45 mcg (15 mcg x 3)/0.5 mL IM syringe Performing Provider: Avelino Russell MD [facility] Documented (not given) by: RHETT Steele on 04/10/25 15:10 Reason Not Given: Received Previously Coding Level of Care Code Est Pt Prev Care 40-64y(23162) Diagnoses Annual physical exam Z00.00 Additional Codes MASON-7 Assessment Billing - MASON-7 Assessment Tool: MASON-7 Assessment 55116 ([id number]) PHQ-9 - 60182 - PHQ-9 Billing: Yes ([id number]) Assessment & Plan Assessment & Plan (1) Annual physical exam: Code(s): Z00.00 - Encounter for general adult medical examination without abnormal findings Plan: History of Present Illness - The patient is a 59-year-old female presenting for a physical examination and evaluation of ongoing symptoms. - Burning and numbing sensation throughout the body: Persistent symptoms with no identified cause despite testing. Antibiotics have provided slight relief, suggesting a possible infectious component. - Urinary tract infection: Previously diagnosed and treated with antibiotics, with significant improvement noted. - Insomnia: Difficulty sleeping attributed to an inability to shut her brain down, managed with citalopram. - Oral candidiasis: Managed with nystatin, possibly related to denture use. - Hyperlipidemia: Managed with pravastatin. - Hypertension: Managed with lisinopril. - Gastroesophageal reflux disease: Managed with omeprazole. - Preventative care: Negative Cologuard test for colon cancer screening and up-to-date flu vaccination. Social History - Family status: The patient is caring for her grandchildren, including a and a child with severe autism, following the of her daughter in 2020. Review of Systems - Neurological: Reports burning and numbing sensation throughout the body. - Genitourinary: Reports previous urinary tract infection, now significantly improved. - Psychiatric: Reports insomnia, managed with citalopram. - Gastrointestinal: Denies abdominal pain. Physical Exam General: Cooperative and healthy appearing Nutritional Appearance: Well nourished Orientation/consciousness: Patient oriented x3 Limitations: No limitations Head: Normal to inspection General: Appearance normal, both eyes and all related structures Neck: Normal visual inspection Chest: Normal palpation of entire chest wall Respiratory: All good ormal respiratory effort Neurology: Patient oriented x3, reports burning, numbing sensation throughout the whole body Results - Labs: Blood work on February 23 showed normal blood count, kidney function, liver function, electrolytes, cholesterol, thyroid, and vitamin B12 levels. - Urine test: Conducted 10 days prior, showing significant improvement in infection. - Cologuard test: Negative result for colon cancer screening, conducted around March 25. Plan - Continue medications for hypertension, hyperlipidemia, GERD, and insomnia. - Follow up with Dr. Jaramillo for further evaluation of burning and numbing sensation. - Continue nystatin for oral candidiasis and monitor symptoms. - Complete antibiotic course for urinary tract infection and monitor for recurrence. - Schedule follow-up in three months for reassessment. Discussion Notes During the visit, we discussed the ongoing symptoms of burning and numbing sensations and the need for further evaluation with Dr. Jaramillo. We reviewed the current medication regimen for hypertension, hyperlipidemia, GERD, and insomnia, emphasizing adherence to prescribed treatments. The importance of completing the antibiotic course for the urinary tract infection was highlighted, along with monitoring for any recurrence. We also discussed the management of oral candidiasis with nystatin. A follow-up appointment was scheduled in three months to reassess the patient's condition and adjust the treatment plan as necessary. Patient Instructions - Continue taking all prescribed medications as directed. - Follow up with Dr. Jaramillo for further evaluation of symptoms. - Complete the antibiotic course for urinary tract infection and watch for any signs of recurrence. - Use nystatin as prescribed for oral candidiasis. - Return for a follow-up appointment in three months. Orders: Orders Influenza [id number] Immunization Today Z23 - Encounter for immunization
[2025-04-10 14:39] VITALS: BP 132/82; PULSE 80; RESP 14; TEMP 36.8; O2SAT 99; BMI 33.3
== END 2025-04-10 15:25 | disposition home or self-care (01) ==
LOC: HO.HMCSH 14:34
PROVIDERS: PCP Internal Medicine; Visit Provider Internal Medicine
DX: Z00.00 Encounter for general adult medical examination without abnormal findings (principal); Z23 Encounter for immunization

== ENCOUNTER → 2025-04-10 14:33 | Outpatient (BNVA) | payer OTHER, SELFPAY | PROVIDERS: PCP Internal Medicine; Visit Provider Internal Medicine | DX: Z00.00 Encounter for general adult medical examination without abnormal findings (principal); E78.5 Hyperlipidemia, unspecified; K21.9 Gastro-esophageal reflux disease without esophagitis; Z28.89 Immunization not carried out for other reason; Z87.440 Personal history of urinary (tract) infections; Z79.899 Other long term (current) drug therapy | CPT/HCPCS: 90471; 96127; 99396 ==

== ENCOUNTER 2025-05-07 11:22 | Outpatient (REF) | payer OTHER, SELFPAY ==
--- NOTE | ~2025-05-07 | MR_ITS ---
EXAMINATION: MR BRAIN WITHOUT CONTRAST CLINICAL INFORMATION: Polyneuropathy, unspecified. COMPARISON: 10/19/2023. 08/05/2010. TECHNIQUE: MRI of the brain was obtained using routine sequences without contrast. Examination performed on a 1.5 Kori Siemens high-field unit. FINDINGS: There is no diffusion restriction. There is no intracranial hemorrhage, acute infarction, mass effect, or edema. Ventricles, sulci, and cisterns are normal in size and configuration for patient age. No shift of midline. No abnormal hemosiderin deposition is identified. There are a few scattered punctate foci of white matter T2 hyperintensity in the periventricular, subcortical, and hemispheric deep white matter. These foci are nonspecific, unchanged from 10/19/2023, and statistically relate to small vessel ischemic changes. Distribution and morphology does not favor inflammatory demyelination. Midline structures appear normally formed. Partial empty sella present. Posterior fossa structures appear normal. Cerebellar tonsils are appropriately located. Major flow voids are preserved within the skull base. The globes and orbital contents demonstrate no abnormalities. Extensive mucosal thickening is seen throughout both maxillary sinuses with near complete opacification bilaterally. Mild patchy opacification of the anterior ethmoid sinuses. Remainder of the paranasal sinuses are normally pneumatized. The mastoids and tympanic cavities are normally aerated. Extracranial soft tissues demonstrate no abnormalities. No suspicious bone marrow changes are evident. Mild to moderate degenerative changes in both TM joints noted. Atlantoaxial joint demonstrates mild degenerative changes. MR/MR head/brain wo con IMPRESSION: 1. No evidence of intracranial hemorrhage, acute infarction, mass effect, or edema. 2. Very mild changes of small vessel ischemia, unchanged from 10/19/2023. 3. Bilateral maxillary sinus mucosal disease as discussed. 4. Stable and unchanged partial empty sella. Electronically signed by: Malachi Sharpe MD 05/08/2025 08:45 AM [facility]
== END 2025-05-07 11:23 | disposition home or self-care (01) ==
LOC: HO.MRI 11:22
PROVIDERS: Visit Provider Registered Nurse
DX: G62.89 Other specified polyneuropathies (principal); G37.9 Demyelinating disease of central nervous system, unspecified
CPT/HCPCS: 70551

== ENCOUNTER → 2025-05-07 11:31 | Outpatient (BNV) | payer OTHER, SELFPAY | PROVIDERS: Visit Provider Radiology Diagnostic Radiology | DX: I67.82 Cerebral ischemia (principal); J32.0 Chronic maxillary sinusitis | CPT/HCPCS: 70551 ==

== ENCOUNTER 2025-05-23 11:28 | Outpatient (REF) | payer OTHER, SELFPAY ==
[2025-05-24 06:43] LABS: Lyme Abs Screen <0.90 index
[2025-05-24 11:54] LABS: Anti Nuclear Antibody Screen NEGATIVE (NEGATIVE)
== END 2025-05-23 11:29 | disposition home or self-care (01) ==
LOC: HO.LAB 11:28
PROVIDERS: PCP Physician Assistant Medical; Visit Provider Registered Nurse
DX: G62.9 Polyneuropathy, unspecified (principal); G44.209 Tension-type headache, unspecified, not intractable; G95.9 Disease of spinal cord, unspecified; G47.00 Insomnia, unspecified; Z01.84 Encounter for antibody response examination; Z79.899 Other long term (current) drug therapy
CPT/HCPCS: 36415; 86038; 86617; 86618

== ENCOUNTER 2025-05-23 11:28 | Outpatient (AMB) | payer OTHER, SELFPAY ==
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
== END 2025-05-23 12:03 | disposition home or self-care (01) ==
LOC: HO.HSM 11:29
PROVIDERS: PCP Internal Medicine; Visit Provider Registered Nurse
DX: G62.9 Polyneuropathy, unspecified (principal); G44.209 Tension-type headache, unspecified, not intractable; G95.9 Disease of spinal cord, unspecified; G47.00 Insomnia, unspecified
CPT/HCPCS: 99214

== ENCOUNTER 2025-05-31 13:52 | Outpatient (REF) | payer OTHER, SELFPAY ==
--- NOTE | ~2025-05-31 | MM_ITS ---
EXAMINATION: DXA BONE DENSITY AXIAL HISTORY: M81.0 - Age-related osteoporosis without current pathological fracture TECHNIQUE: [employer] Dual energy absorptiometry (DEXA) of the lumbar spine, total left hip, and femoral neck was performed. COMPARISON: There are no prior studies for comparison. FINDINGS: The bone mineral density of the lumbar spine is 1.335 g/cm2, corresponding to a T-score of 1.3, and a Z-score of 1.8. This is indicative of normal bone mineral density. The bone mineral density of the left total hip is 0.990 g/cm2, corresponding to a T-score of -0.1, and a Z-score of 0.3. This is indicative of normal bone mineral density. The bone mineral density of the left femoral neck is 0.825 g/cm2, corresponding to a T-score of -1.5, and a Z-score of -0.7. This is indicative of osteopenia. FRACTURE RISK: The FRAX index suggests a risk of major osteoporotic fracture of 8.0%, and of hip fracture 0.7%. MM/XR DEXA axial skeleton IMPRESSION: Based on bone mineral density, and according to World Health Organization (WHO) criteria, the diagnosis is consistent with osteopenia. Statistically, 68% of repeat scans fall within 1 SD (+/- 0.010 g/cm2 for AP spine L1-L4) and 1 SD (+/- 0.012 g/cm2 for femur total) FRAX is a trademark of the [employer] Metabolic Bone Disease, a World Health Organization (WHO) Collaborating Center. Electronically signed by: Gato Bennett MD 05/31/2025 02:35 PM [facility]
== END 2025-05-31 13:53 | disposition home or self-care (01) ==
LOC: HO.MAMMO 13:52
PROVIDERS: PCP Internal Medicine; Visit Provider Physician Assistant Medical
DX: M81.0 Age-related osteoporosis without current pathological fracture (principal); Z12.31 Encounter for screening mammogram for malignant neoplasm of breast
CPT/HCPCS: 77063; 77067; 77080

== ENCOUNTER → 2025-05-31 14:30 | Outpatient (BNV) | payer OTHER, SELFPAY | PROVIDERS: PCP Internal Medicine; Visit Provider Radiology Diagnostic Radiology | DX: E28.39 Other primary ovarian failure (principal) | CPT/HCPCS: 77080 ==